=== PATIENT | female | born 1940 | race Caucasian/White ===

== ENCOUNTER 2018-04-01 05:58 | Day surgery (SDC) | payer MEDICARE, BC ==
[~2018-04-01] VITALS: Ht 165.1 cm; Wt 77.1 kg
[~2018-04-01 05:58] MED LIST: ASPIRIN81 MG; BL VIT B-12100 MCG PO; FISH OIL1 CAP PO; FLONASE NASAL50 MCG; MAXIDE1 COMBO PO; MUCINEX600 MG PO; MULTIVITAMI1 PO; OMEPRAZOLE20 M1 PO; PRILOSEC20 MG PO; TRAZODONE50 MG PO; VITAMIN D400 UNI1 PO
[2018-04-01 08:05] VITALS: BP 130/65
== END 2018-04-01 08:11 | disposition home or self-care (01) ==
LOC: ENDO 05:58 → ORM 07:00 → ENDO 08:11
PROVIDERS: ATTEND Surgery
PROC: 0DB78ZX Excision of Stomach, Pylorus, Via Natural or Artificial Opening Endoscopic, Diagnostic (ICD-10-PCS; principal; 2018-04-01)
PROC: 0DJD8ZZ Inspection of Lower Intestinal Tract, Via Natural or Artificial Opening Endoscopic (ICD-10-PCS; 2018-04-01)
DX: K29.50 Unspecified chronic gastritis without bleeding (principal); K44.9 Diaphragmatic hernia without obstruction or gangrene; K31.7 Polyp of stomach and duodenum; Q39.8 Other congenital malformations of esophagus; Z12.11 Encounter for screening for malignant neoplasm of colon; K57.30 Diverticulosis of large intestine without perforation or abscess without bleeding; K64.8 Other hemorrhoids; I10 Essential (primary) hypertension
CPT/HCPCS: 43239; G0121

== ENCOUNTER 2019-01-03 12:24 | Emergency (ER) | payer MEDICARE, BC ==
[~2019-01-03] VITALS: Ht 165.1 cm; Wt 85.5 kg
[2019-01-03 12:50] LABS: URINE BILIRUBIN - DIPSTICK NEGATIVE (NEGATIVE); URINE BLOOD DIPSTICK NEGATIVE (NEGATIVE); URINE COLOR YELLOW; URINE GLUCOSE - DIPSTICK NEGATIVE (NEGATIVE); URINE KETONE NEGATIVE (NEGATIVE); URINE NITRITE - DIPSTICK NEGATIVE (Negative); URINE PH 5.5 (4.5-8.0); URINE PROTEIN - DIPSTICK NEGATIVE (NEG-TRACE); URINE SPECIFIC GRAVITY 1.025; URINE UROBILINOGEN - DIPSTICK 0.2 E.U./dL (0.2)
[2019-01-03 12:53] LABS: URINE LEUK ESTERASE MODERATE (NEGATIVE)
[2019-01-03 13:07] LABS: URINE SQUAMOUS EPITHELIAL CELL FEW EPI/hpf (0-FEW)
[2019-01-03 13:07] LABS: HEMATOCRIT 37.7 % (37.0-47.0); HEMOGLOBIN 12.6 g/dl (12.0-16.0); IMMATURE GRANULOCYTES 0.5 % (0.0-5.0); MEAN CELL VOLUME 89.8 fL CALC (80.0-100.0); MEAN CORPUSCULAR HGB CONC 33.4 g/L CALC (32.0-36.0); NEUT# 4.92 thou/uL (2.00-7.15); RED BLOOD COUNT 4.2 mill/uL (4.20-5.60)
[2019-01-03 13:16] LABS: ALKALINE PHOSPHATASE 120 u/l (38-126); ANION GAP 12 (6-22 (CALC)); BILIRUBIN, TOTAL 0.6 mg/dL (0.0-1.4); BUN 18 mg/dL (8-23); BUN/CREATININE RATIO 21 (12-20 (CALC)); CARBON DIOXIDE 27 mmol/l (22-30); CHLORIDE 102 mmol/l (95-108); CREATININE 0.9 mg/dL (0.5-1.0); GFR > 60 ML/MIN (>=60 (CALC)); GFR FOR AFR.AMER. > 60 ML/MIN (>=60 (CALC)); LIPASE 134 u/l (23-300); POTASSIUM 3.7 mmol/l (3.5-5.1); SGOT/AST 51 u/l (9-36); SODIUM 137 mmol/l (137-146); TOTAL PROTEIN 7.2 g/dL (6.3-8.2)
[2019-01-03] MEDS ORDERED: KEFLEX500 MG PO (13:35)
[2019-01-03] MEDS ORDERED: TRAMADOL HYDROC50 MG PO (13:35)
[2019-01-03] MEDS ORDERED: SINGULAIR10 MG PO (13:43)
[2019-01-03] MEDS ORDERED: MAXZIDE PO (13:43)
[2019-01-03] MEDS ORDERED: VALTREX1 GM PO (13:44)
[2019-01-03] MEDS ORDERED: EFFEXOR25 M1 PO (13:44)
[2019-01-03 13:46] VITALS: BP 137/67
== END 2019-01-03 13:46 | disposition home or self-care (01) ==
LOC: ED 12:24
DX: N20.0 Calculus of kidney (principal); N39.0 Urinary tract infection, site not specified; Z87.442 Personal history of urinary calculi

== ENCOUNTER 2020-01-21 18:59 | Inpatient (IN) | payer MEDICARE, BC ==
[~2020-01-21] VITALS: Ht 165.1 cm; Wt 111.8 kg
[~2020-01-21 18:59] MED LIST changes: +EFFEXOR25 M1 PO; +KEFLEX500 MG PO; +MAXZIDE PO; +SINGULAIR10 MG PO; +TRAMADOL HYDROC50 MG PO; +VALTREX1 GM PO
--- NOTE | 2020-01-21 19:00 | NUR ---
BY EMS TO ROOM
--- NOTE | 2020-01-21 20:00 | NUR ---
RESTING QUIETLY AWAITING TEST RESULTS.
--- NOTE | 2020-01-21 21:00 | NUR ---
NO CHANGE IN EXAM. VSS. NAD
[2020-01-21 21:10] LABS: HEMATOCRIT 41.4 % (37.0-47.0); HEMOGLOBIN 13.1 g/dl (12.0-16.0); IMMATURE GRANULOCYTES 0.4 % (0.0-5.0); MEAN CELL VOLUME 96.5 fL CALC (80.0-100.0); MEAN CORPUSCULAR HGB 30.5 pG CALC (26.0-32.0); MEAN CORPUSCULAR HGB CONC 31.6 g/dL CAL (32.0-36.0); NEUT# 3.92 thou/uL (2.00-7.15); RED BLOOD COUNT 4.29 mill/uL (4.20-5.60); RED CELL DISTRI WIDTH 12.7 % (11.5-15.5)
[2020-01-21 21:18] LABS: ALBUMIN 4.1 g/dL (3.2-5.0); ALKALINE PHOSPHATASE 109 u/l (38-126); AMYLASE 77 u/l (30-110); ANION GAP 13 (6-22 (CALC)); BILIRUBIN, TOTAL 0.5 mg/dL (0.0-1.4); BUN 17 mg/dL (8-23); BUN/CREATININE RATIO 17 (12-20 (CALC)); CARBON DIOXIDE 25 mmol/l (22-30); CHLORIDE 100 mmol/l (95-108); GFR 54 ML/MIN (>=60 (CALC)); GFR FOR AFR.AMER. > 60 ML/MIN (>=60 (CALC)); LIPASE 86 u/l (23-300); POTASSIUM 3.7 mmol/l (3.5-5.1); SGOT/AST 39 u/l (9-36); SODIUM 135 mmol/l (137-146); TOTAL PROTEIN 7.2 g/dL (6.3-8.2)
[2020-01-21 21:29] LABS: MYOGLOBIN 60 ng/mL (0 - 62)
--- NOTE | 2020-01-21 22:00 | NUR ---
APPEARS COMFORTABLE. NO CHANGES NOTED.
--- NOTE | 2020-01-21 23:00 | NUR ---
RESTING QUIETLY NO CHANGE IN EXAM.
--- NOTE | 2020-01-22 | NUR ---
NO SIGNIFICANT CHANGE NOTED. AWAITING DISPO.
--- NOTE | 2020-01-22 01:00 | NUR ---
RESTING QUIETLY. VSS NAD
[2020-01-22 01:44] VITALS: BP 138/64
--- NOTE | 2020-01-22 01:44 | NUR ---
79 yr old white female admitted as medsurg tele overflow to icu5 per stretcher from er. air/contact precautions initiated. ambulated self to bedside commode then to bed. bed weight obtained. o2 cont per nc. denies resp diff. tracer powder blender shows sinus rhythm 1st degree avb hr 80. #22 rac. ns bolus cont. history obtained per pt & er record. oriented to room. fall precautions initiated.
--- NOTE | 2020-01-22 01:45 | NUR ---
Admission Note Report Given to: FINA LYNNE Transported by: Wheelchair X Stretcher Transported with: X Nurse Transporter X Patent IV X O2 X Epidemiology Internship Location: X ICU MS2
[2020-01-22] MEDS ORDERED: GABAPENTIN300 M2 PO (02:37)
[2020-01-22] MEDS ORDERED: ZETIA10 MG PO ×2 (02:37→02:41)
[2020-01-22] MEDS ORDERED: ACETAMINOPHEN500 M1 PO (02:39)
[2020-01-22] MEDS ORDERED: ELIQUIS5 MG PO (02:40)
[2020-01-22] MEDS ORDERED: ATORVASTATIN CA40 MG PO (02:40)
[2020-01-22] MEDS ORDERED: TOPROL XL25 MG PO (02:41)
[2020-01-22] MEDS ORDERED: K-TABS10 MEQ PO (02:42)
[2020-01-22 04:00] VITALS: BP 137/66
--- NOTE | 2020-01-22 04:00 | NUR ---
up to bsc. urine spec collected & sent to lab.
--- NOTE | 2020-01-22 05:45 | NUR ---
lab here. blood drawn.
[2020-01-22 06:31] LABS: URINE BILIRUBIN - DIPSTICK NEGATIVE (NEGATIVE); URINE BLOOD DIPSTICK NEGATIVE (NEGATIVE); URINE COLOR YELLOW; URINE GLUCOSE - DIPSTICK NEGATIVE (NEGATIVE); URINE KETONE NEGATIVE (NEGATIVE); URINE LEUK ESTERASE NEGATIVE (NEGATIVE); URINE NITRITE - DIPSTICK NEGATIVE (Negative); URINE PROTEIN - DIPSTICK NEGATIVE (NEG-TRACE); URINE SPECIFIC GRAVITY 1.015; URINE UROBILINOGEN - DIPSTICK 0.2 E.U./dL (0.2)
[2020-01-22 06:35] LABS: HEMATOCRIT 38.4 % (37.0-47.0); HEMOGLOBIN 12.2 g/dl (12.0-16.0); IMMATURE GRANULOCYTES 0.6 % (0.0-5.0); MEAN CORPUSCULAR HGB 30.5 pG CALC (26.0-32.0); MEAN CORPUSCULAR HGB CONC 31.8 g/dL CAL (32.0-36.0); NEUT# 3.04 thou/uL (2.00-7.15); RED CELL DISTRI WIDTH 12.8 % (11.5-15.5)
--- NOTE | 2020-01-22 07:00 | NUR ---
REPORT RECEIVED FROM NIGHT NURSE. PT RESTING IN BED, NO S/S OF DISTRESS AT THIS TIME. SAFETY PRECAUTIONS IN PLACE. WILL CONTINUE TO MONITOR.
[2020-01-22 07:09] LABS: ALBUMIN 3.4 g/dL (3.2-5.0); ALKALINE PHOSPHATASE 77 u/l (38-126); BILIRUBIN, TOTAL 0.7 mg/dL (0.0-1.4); BUN 15 mg/dL (8-23); BUN/CREATININE RATIO 19 (12-20 (CALC)); C-REACTIVE PROTEIN 7.8 mg/dL (0-0.9); CARBON DIOXIDE 21 mmol/l (22-30); CHLORIDE 106 mmol/l (95-108); CREATININE 0.8 mg/dL (0.5-1.0); GFR > 60 ML/MIN (>=60 (CALC)); GFR FOR AFR.AMER. > 60 ML/MIN (>=60 (CALC)); SGOT/AST 38 u/l (9-36); SODIUM 135 mmol/l (137-146); TOTAL PROTEIN 6.1 g/dL (6.3-8.2)
[2020-01-22 07:17] LABS: ANION GAP 13 (6-22 (CALC)); POTASSIUM 4.8 mmol/l (3.5-5.1)
--- NOTE | 2020-01-22 08:10 | NUR ---
PT RESTING IN BED, ALERT AND ORIENTED. RESPIRATIONS ARE EVEN AND UNLABORED ON O2 @ 2L VIA NC. LUNGS SOUND CLEAR/DIMINISHED. PEDAL PULSES ARE WEAK. PT REPORTS MILD GENERALIZED PAIN. MD TO BE NOTIFIED. PT PROVIDED WITH A TOWEL AND YANIQUE SHANTEL PER REQUEST. SAFETY PRECAUTIONS IN PLACE. WILL CONTINUE TO MONITOR.
[2020-01-22 10:00] VITALS: BP 136/60
[2020-01-22 12:00] VITALS: BP 121/80
--- NOTE | 2020-01-22 12:09 | NUR ---
PT RESTING IN BED, RESPIRATIONS ARE EVEN AND UNLABORED ON O2 @ 2L VIA NC. NO S/S OF DISTRESS AT THIS TIME. SAFETY PRECAUTIONS IN PLACE. WILL CONTINUE TO MONITOR.
[2020-01-22] MEDS ORDERED: CRESTOR5 M1 PO (12:21)
[2020-01-22 15:55] VITALS: BP 169/73
[2020-01-22 20:00] VITALS: BP 157/65
--- NOTE | 2020-01-22 20:00 | NUR ---
PT AWAKE AND ALERT, NO C/O RESP DIFF. DISCUSSED PLANE OF CARE. CALL VASQUEZ AT BEDSIDE.
--- NOTE | 2020-01-22 22:35 | NUR ---
PT C/O SHOULDER AND BACK PAIN, REQUESTED TYLENOL.
--- NOTE | 2020-01-22 22:42 | NUR ---
PT ON HOME C-PAP.
[2020-01-23] VITALS (7 sets, daily range): BP systolic 102–175; BP diastolic 52–63
--- NOTE | 2020-01-23 | NUR ---
PT SLEEPING WITH HOME CPAP ON. CALL VASQUEZ IN REACH.
--- NOTE | 2020-01-23 02:35 | NUR ---
PT C/O BEING COLD AND SHIVERING. T96.9 BLANKET PROVIDED.
--- NOTE | 2020-01-23 03:43 | NUR ---
PT C/O NAUSEA AND BEING COLD. MEDICATED PER MAR. ADDITIONAL BLANKET PROVIDED.
--- NOTE | 2020-01-23 06:28 | NUR ---
PT SLEEPING WITH HOME CPAP ON. NO EPISODES OF VOMITING. NO SHIVERING NOTED. CALL VASQUEZ IN REACH.
--- NOTE | 2020-01-23 07:00 | NUR ---
REPORT RECEIVED FROM FINA OLIVA. PT RESTING IN BED, NO S/S OF DISTRESS AT THIS TIME. SAFETY PRECAUTIONS IN PLACE. WILL CONTINUE TO MONITOR.
--- NOTE | 2020-01-23 08:03 | NUR ---
PT RESTING IN BED, ALERT AND ORIENTED. RESPIRATIONS ARE EVEN AND UNLABORED ON CPAP. PT REPORTS MILD PAIN IN UPPER BACK AND SHOULDERS, PT MEDICATED PER EMAR ORDERS. PEDAL PULSES ARE WEAK. PT PROVIDED WITH YANIQUE SHANTEL PER REQUEST. SAFETY PRECAUTIONS IN PLACE. WILL CONTINUE TO MONITOR.
--- NOTE | 2020-01-23 21:00 | NUR ---
PT RESTING WITH EYES CLOSED; AROUSED EASILY TO VERBAL STIMULI; O2 2L VIA NC, PT WITH EXERTIONAL SOB; NOP COUGH, LUNGS CLEAR/DIMINSHED; #[address], FLUSHED WITHOUT DIFFICULTY; PT C/O BILAT SHOULDER PAIN 5/10, MEDICATED ORDERED; CALL VASQUEZ WITHIN REACH; SIDERAILS UP X2 WILL CONTINUE TO MONITOR.
--- NOTE | 2020-01-24 01:07 | NUR ---
PT RESTING WITH EYES CLOSED; NO S/SX OF DISTRESS NOTED; CALL VASQUEZ WITHIN REACH; WILL CONTINUE TO MONITOR.
--- NOTE | 2020-01-24 03:42 | NUR ---
PT AROUSED EASILY, REQUEST BLANKET AT THIS TIME; NO COMPLAINTS OR CONCERNS VOICED; CALL VASQUEZ WITHIN REACH; WILL CONTINUE TO MONITOR.
[2020-01-24 04:00] VITALS: BP 127/61
--- NOTE | 2020-01-24 04:50 | NUR ---
TYLENOL GIVEN FOR BILATERAL SHOULDER PAIN. PT C/O BEING VERY COLD AND ITS EXACERBATING HER PAIN. RESTING IN BED ON RIGHT SIDE WITH CPAP ON. REMOVED TO AMBULATE TO BATHROOM AND PT NOW BACK IN BED IN SAME POSITION. WARM BLANKET PROVIDED AND PT STATES SHE FEELS BETTER. SPO2 90% ON 2L OXYGEN VIA NC; BREATHING TECHNIQUES ENCOURAGED. REPORTS PRODUCTIVE COUGH; DOES NOT KNOW QUALITIES OF SPUTUM. REMAINS ON AIRBORNE/CONTACT PRECAUTIONS PENDING COVID SWAB. CALL LIGHT WITHIN REACH.
[2020-01-24 07:40] VITALS: BP 112/53
--- NOTE | 2020-01-24 08:50 | NUR ---
DR. ROUSE AND FIDEL KOCH AT BEDSIDE.
--- NOTE | 2020-01-24 10:43 | NUR ---
TYLENOL GIVEN FOR 6/10 BILATERAL SHOULER PAIN. PT REQUESTING A WARMER ROOM; WILL ATTEMPT TO FIND MORE COMFORTABLE ROOM. PT RESTING IN BED ON RIGHT SIDE WITH OXYGEN IN PLACE. AMBULATES TO BATHROOM INDEPENDENTLY.
--- NOTE | 2020-01-24 13:45 | NUR ---
TYLENOL EFFECTIVE FOR SHOULDER PAIN; HEAT PACKS ALSO PROVIDED FOR COMFORT. PT REPORTS THAT SHE IS CURRENTLY NOT COLD. NO REQUESTS OR CONCERNS AT THIS TIME. CALL LIGHT WITHIN REACH.
[2020-01-24 15:00] VITALS: BP 117/53
--- NOTE | 2020-01-24 16:18 | NUR ---
WHILE RESTING ON RIGHT SIDE PT'S SPO2 ON 2L IS NOW 86-87%; ENCOURAGED TO DEEP BREATH AND POSITION PRONE; PT REFUSES TO REST PRONE STATING THAT SHE DOES NOT TOLERATE IT; EDUCATED ON BREATHING TECHNIUQES AND SYMPTOMS OF COVID. OVER THE LAST 20 MINUTES OXYGEN HAS BEEN TITRATED UP AND IS NOW UP TO 5L VIA NC; SPO2 CURRENTLY 92-94% ON 5L. WILL CONTINUE TO MONITOR.
--- NOTE | 2020-01-24 18:00 | NUR ---
INCENTIVE SPIROMETER PROVIDED; PT GIVEN VERBAL EDUCATION AND INSTRUCTION. SPO2 92% 5L NC WHILE PERFORMING RETURN DEMONSTRATION. INSPIRATORY VOLUME ALMOST TO 1000. PT UP TO CHAIR FOR DINNER AFTER MULITPLE REQUESTS AND A LOT OF ENCOURAGEMENT. VERY SOB WITH EXERTION.
--- NOTE | 2020-01-24 18:50 | NUR ---
WITH EXERTION UP TO CHAIR SPO2 DECREASED INTO LOW 80S; OXYGEN TITRATED UP TO 6L VIA NC. PT PERFORMING BREATHING TECHNIUQES. WILL CONTINUE TO MONITOR.
[2020-01-24 20:00] VITALS: BP 165/70
[2020-01-24 21:09] VITALS: BP 140/68
--- NOTE | 2020-01-24 21:09 | NUR ---
PT MEDICATED ORDERS PROVIDE AND ASSESSMENT COMPLETED AT THIS TIME. PT IS IN BED LAYING ON SIDE WITH HEAD SLIGHTLY ELEVATED. I ASKED PT TO DEMONSTRATE IS, SHE STATED "OH I ALREADY DID THAT." I ASKED IF SHE COULD PLEASE DEMONSTRATE FOR ME SO I CAN SEE WHERE SHE IS MEASURING ON IT, SHE DEMONSTRATED 1200 ON IS. PT OXYGEN SATS @87% ON 6L HIGH FLOW, 7L 90%. TEMP 100.3, TYLENOL WAS JUST GIVEN PREVIOUSLY BY DAY NURSE, WILL CONTINUE TO MONITOR. I DISCUSSED WITH PT POSITIONING FOR BREATHING TECHNIQUES AND OPENING LUNGS, PT REFUSED PRONE POSITION, I CONTINUE TO EDUCATE HER, SHE REPLIED, "I CAN'T LAY ON MY STOMACH." I THEN SUGGESTED THAT SHE BOOST IN THE BED AND RAISE THE HOB TO HIGH FOWLERS POSITION, PT CONTINUES TO LAY LOW ON HER SIDE WITH HOB SLIGHTLY RAISE AND CHEST BENT OVER. PT ASKING FOR SPOON TO EAT YOGURT WITH AND NEW IV SITE.
--- NOTE | 2020-01-24 21:20 | NUR ---
NEW IV SITE OBTAINED, OLD SITE REMOVED INTACT. PT TOLERATED IT WELL. PT ENCOURAGED TO CALL NEEDS ARISE, CALL LIGHT W/IN REACH.
[2020-01-25] VITALS (17 sets, daily range): BP systolic 111–163; BP diastolic 50–79
--- NOTE | 2020-01-25 04:40 | NUR ---
OXYGEN SAT LEVELS REPORTED BY ASSISTANT HALL DIRECTOR TO BE 83% ON CPAP. RESPIRATORY CALLED TO WORK WITH PT, PATIENT IS REFUSING TO LAY IN PRONE POSITION AND STATES SHE CANNOT SIT UPRIGHT IN BED ON HER BACK UNLESS SHE HAS ZOFRAN FOR NAUSEA, WILL MEDICATE TO ASSIST WITH THIS COMFORT MEASURE. PT PLACED ON 14LHIGH FLOW, SAT LEVELS 83% PHYSICIAN NOTIFIED AND NEW ORDERS RECEIVED AT THIS TIME.
--- NOTE | 2020-01-25 05:05 | NUR ---
PT TRANSFERRED TO ICU IN STABLE CONDITION, REPORT GIVEN TO ICU NURSE AT BEDSIDE. OXYGEN SAT LEVELS FLUCTUATING FROM 87-100% ON 15LHIGH FLOW. RESPIRATORY AT BEDSIDE. PT TOLERATED TRANSFER WELL.
--- NOTE | 2020-01-25 05:05 | NUR ---
rec'd to icu5 per bed from [facility]. o2 cont per nc @ 14 l/m. pt instructed strongly about need to lay in prone position. pt says "i can't." night monitor shows sinus rhythm hr 84. #22 rt hand saline lock. temp 101.3 ax. tylenol 650mg po given. fall & air/contact precautions cont.
--- NOTE | 2020-01-25 05:50 | NUR ---
lab here. blood drawn. xray here pcxr obtained.
[2020-01-25 06:10] LABS: HEMATOCRIT 38.7 % (37.0-47.0); HEMOGLOBIN 12.4 g/dl (12.0-16.0); IMMATURE GRANULOCYTES 0.4 % (0.0-5.0); MEAN CELL VOLUME 95.3 fL CALC (80.0-100.0); MEAN CORPUSCULAR HGB 30.5 pG CALC (26.0-32.0); NEUT# 8.51 thou/uL (2.00-7.15); RED BLOOD COUNT 4.06 mill/uL (4.20-5.60); RED CELL DISTRI WIDTH 12.8 % (11.5-15.5)
--- NOTE | 2020-01-25 06:30 | NUR ---
up to bsc. had small amt dk brown diarrhea. stool spec sent to lab.
[2020-01-25 06:37] LABS: ALBUMIN 3.2 g/dL (3.2-5.0); ALKALINE PHOSPHATASE 80 u/l (38-126); BILIRUBIN, TOTAL 0.6 mg/dL (0.0-1.4); BUN 22 mg/dL (8-23); BUN/CREATININE RATIO 27 (12-20 (CALC)); CARBON DIOXIDE 24 mmol/l (22-30); CHLORIDE 105 mmol/l (95-108); CREATININE 0.8 mg/dL (0.5-1.0); GFR > 60 ML/MIN (>=60 (CALC)); GFR FOR AFR.AMER. > 60 ML/MIN (>=60 (CALC)); SGOT/AST 48 u/l (9-36); SODIUM 137 mmol/l (137-146)
[2020-01-25 06:41] LABS: ANION GAP 12 (6-22 (CALC)); POTASSIUM 3.6 mmol/l (3.5-5.1)
--- NOTE | 2020-01-25 06:45 | NUR ---
REPORT RECIEVED FROM MAGED RICHTER. CARE ASSUMED.
--- NOTE | 2020-01-25 07:30 | NUR ---
PT RESTING IN BED ON RIGHT SIDE. ENCOURAGED PT TO PRONE. PT REMAINS ON RIGHT SIDE. PT IS ALERT AND ORIENTED X3. SHIFT ASSESSMENT COMPLETED AT THIS TIME. IV PATENT X1. CALL LIGHT IN REACH. WILL CONTINUE TO MONITOR.
[2020-01-25 07:34] LABS: C-REACTIVE PROTEIN 33.6 mg/dL (0-0.9)
--- NOTE | 2020-01-25 08:00 | NUR ---
RT AT BEDSIDE FOR ABG
--- NOTE | 2020-01-25 08:20 | NUR ---
DR MONSON AT BEDSIDE AT THIS TIME.
--- NOTE | 2020-01-25 08:35 | NUR ---
RT PLACED PT ON CPAP MODE OF 10 WITH 70% FIO2.
--- NOTE | 2020-01-25 08:56 | NUR ---
RECEIVED PT ON 15L HFNC SO2 88%. PT UNABLE TO MAINTAIN SATURATION. PT PLACED ON V60 IN CPAP MODE. CPAP OF 10 FIO2 70%. SO2 94% AT THIS TIME. FINA GARIBAY AWARE AND AT BEDSIDE. WILL CONTINUE TO MONITOR.
--- NOTE | 2020-01-25 09:59 | NUR ---
PT RESTING IN BED ON CPAP. RESP ARE EVEN AND UNLABORED. NO DISTRESS NOTED. VSS ON MONITOR. CALL LIGHT IN REACH. WILL CONTINUE TO MONITOR.
--- NOTE | 2020-01-25 11:30 | NUR ---
PT OFF OF BIPAP FOR NOON MEAL AND PLACED ON 15L HF NASAL CANNULA.
--- NOTE | 2020-01-25 12:15 | NUR ---
PT PLACED BACK ON CPAP/BIPAP FOR O2 83%. PT TOLERATED WELL.
--- NOTE | 2020-01-25 14:00 | NUR ---
PT TAKEN OFF OF BIPAP AT THIS TIME. TO BE ABLE TO EAT AND DRINK A BIT. PT PLACED ON 15L HF NC.
--- NOTE | 2020-01-25 14:45 | NUR ---
PT PLACED BACK ON BIPAP AT THIS TIME FOR O2 SAT OF 82%. PT NEEDED TO VOID. DUE TO DYSPNEA PLACED A PUREWICK PT TOLERATED PLACEMENT WELL. CALL LIGHT IN REACH. WILL CONTINUE TO MONITOR.
--- NOTE | 2020-01-25 16:30 | NUR ---
PT RESTING IN BED WITH CPAP/BIPAP ON AT THIS TIME. PT IS TOLERATING WELL. RESP ARE EVEN AND UNLABORED. NO DISTRESS NOTED CALL LIGHT IN REAVCH. WILL CONTINUE TO MONITOR.
--- NOTE | 2020-01-25 17:30 | NUR ---
TEMP 100.3 TOOK PATIENT OFF OF BIPAP/CPAP TO GIVE TYLENOL WITH SMALL SIPS OF DRINK. PT BECAME NAUSEATED PLACED PT ON HI HOA NC AT 15L. PT GIVEN ZOFRAN PER MAY. PT DESAT TO 59% AND WAS TACHYPNEIC. PT GIVEN COACHING ON BREATHING. PT STATED NAUSEA HAD SUBSIDED. RT PLACED PT ON BIPAP NOT CPAP AT THIS TIME SEE RT CHARTING FOR SETTINGS. PT TOLERATING WELL. CALL LIGHT IN REACH. WILL CONTINUE TO MONITOR.
--- NOTE | 2020-01-25 18:30 | NUR ---
REPEAT TEMP 100.5.
--- NOTE | 2020-01-25 20:00 | NUR ---
RESTING IN BED WITH EYES CLOSED. AWAKENS TO NAME. ALERT AND ORIENTED. ON BIPAP WITH SETTINGS O2 100%, EPAP 10, IPAP 10, RATE 16. DIMINISHED BREATH SOUNDS THROUGHOUT LUNG BARBA. SALINE LOCK IN RIGHT HAND FLUSHED AND PATENT, SITE BENIGN HIM SPECIALIST SHOW SR WITH [address] DE[address] AVB. DISCUSSED PLAN OF CARE. EXPLAINED PRONING TO PATIENT. REMOVED BIPAP MASK BRIEFLY FOR PATIENT TO TAKE PO FLUIDS, O2 SAT IMMEDIATELY DROPPED TO LOW 80'S. WHILE ON BIPAP O2 SAT 94-95% DENIES NEEDS AT THIS TIME. CALL VASQUEZ IN REACH.
--- NOTE | 2020-01-25 21:00 | NUR ---
PATIENT DAUGHTER REDD PHONED IN FOR CONDITION UPDATE.
--- NOTE | 2020-01-25 22:00 | NUR ---
RESTING QUIETLY IN BED. VSS.
[2020-01-26] VITALS (21 sets, daily range): BP systolic 65–185; BP diastolic 44–79
--- NOTE | 2020-01-26 | NUR ---
ASLEEP. VSS. O2 SAT 93% BIPAP REMAINS IN PLACE WITH SETTING UNCHANGED. SR WITH 1 [address] DEGREE AVB ON MONITOR.
--- NOTE | 2020-01-26 02:00 | NUR ---
PATIENT SLEEPING. NO SIGNS OF DISTRESS. VSS.
--- NOTE | 2020-01-26 03:30 | NUR ---
PUREWICK MALPOSITIONED, PATIENT INCONTINENT OF URINE AND SMALL LIQUID STOOL. ZEYAD-CARE PROVIDED AND NEW PUREWICK PLACED.
--- NOTE | 2020-01-26 04:00 | NUR ---
ASLEEP. RESP NON-LABORED.
--- NOTE | 2020-01-26 06:00 | NUR ---
NO CHANGES TO REPORT. SLEPT WELL. VSS.
--- NOTE | 2020-01-26 07:35 | NUR ---
ASSESSMENT IS COMPLETED:IV SITE IS FREE FROM REDNESS OR EDEMA. HR IS REG,PULSES ARE STRONG X4, ABD IS SOFT WITH ACTIVE BS. BREATH SOUNDS ARE DIMINISHED. BIPAP. HRT MONITOR IN PLACE, CONTINUE TO OSBERVE AND MONITOR.
--- NOTE | 2020-01-26 07:53 | NUR ---
SPOKE WITH PT'S DAUGHTER FOR AN UPDATE. CONCERNED DUE TO PT HAVING PE IN THE PAST.
[2020-01-26 08:53] LABS: HEMATOCRIT 41.6 % (37.0-47.0); HEMOGLOBIN 13.3 g/dl (12.0-16.0); IMMATURE GRANULOCYTES 0.4 % (0.0-5.0); MEAN CELL VOLUME 95.2 fL CALC (80.0-100.0); MEAN CORPUSCULAR HGB 30.4 pG CALC (26.0-32.0); NEUT# 8.77 thou/uL (2.00-7.15); RED BLOOD COUNT 4.37 mill/uL (4.20-5.60)
[2020-01-26 09:14] LABS: ALBUMIN 3.4 g/dL (3.2-5.0); ALKALINE PHOSPHATASE 94 u/l (38-126); ANION GAP 14 (6-22 (CALC)); BILIRUBIN, TOTAL 0.8 mg/dL (0.0-1.4); BUN 29 mg/dL (8-23); BUN/CREATININE RATIO 38 (12-20 (CALC)); CARBON DIOXIDE 28 mmol/l (22-30); CHLORIDE 103 mmol/l (95-108); CREATININE 0.8 mg/dL (0.5-1.0); GFR > 60 ML/MIN (>=60 (CALC)); GFR FOR AFR.AMER. > 60 ML/MIN (>=60 (CALC)); POTASSIUM 4.2 mmol/l (3.5-5.1); SGOT/AST 70 u/l (9-36); SODIUM 141 mmol/l (137-146); TOTAL PROTEIN 6.6 g/dL (6.3-8.2)
--- NOTE | 2020-01-26 09:15 | NUR ---
PT WANTED TO HAVE THE CPAP OFF. EXPLAINED THAT SHE DESATS TO 70%. REPLACED BACK ON THEN IN 15 MINUTES REFUSED TO KEEP ON. SATS DROPPED TO 28-32%. HAVE A NASAL CANNULA ON WITH HIGH FLOW UP TO 64%
[2020-01-26 09:27] LABS: C-REACTIVE PROTEIN > 27.0 mg/dL (0-0.9)
--- NOTE | 2020-01-26 09:54 | NUR ---
PT IS REQUESTING A VENT. STATING " I CAN'T TAKE THIS ANYMORE" RESPIRATORY HAS HER ON HIGH FLOW AND NON REBREATHER CURRENTLY 82% AT THIS TIME.
--- NOTE | 2020-01-26 10:43 | NUR ---
SPOKE WITH DR MONSON RE: PT AND THE VENTILATOR SATS ARE 85% WITH NON REBREATHER AND HIGH FLOW. WANTING TO GO AHEAD AND VERNT PT.
--- NOTE | 2020-01-26 11:34 | NUR ---
DR CARLIN ON THE UNIT TO INTUBATE THE PT
--- NOTE | 2020-01-26 12:00 | NUR ---
DR CARLIN PLACED INTUBATION AND CENTRAL LINE AND OG
--- NOTE | 2020-01-26 12:00 | NUR ---
PT IS RESTING UNDER SEDATION
--- NOTE | 2020-01-26 12:05 | NUR ---
PT.INTUBATED BY AT 1140 WITH 7.5 ETT 23@ LIP. PLACEMENT VERIFIED BY XRAY/BILATERAL BREATH SOUNDS.
--- NOTE | 2020-01-26 12:31 | NUR ---
# 16 EGYPTIAN DA SILVA PLACED IN PT. LARGE AMOUNT OF DARK YELLOW URINE CAME OUT SMALL AMOUNT OF STOOL ALSO
--- NOTE | 2020-01-26 13:15 | NUR ---
INFORMED FAMILY IN [place] RE: PT BEING PLACED ON THE VENT PER PT REQUEST DUE TO O2 SATURATION DROPPING AND REFUSING TO KEEP HER CPAP IN PLACE. FAMILY VERBALIZED UNDERSTANDING AND WOULD LIKE TO KEPP UPDATED IF ANYTHING HAPPENS.
--- NOTE | 2020-01-26 16:54 | NUR ---
PT HAS BEEN INTUBATED AND PLACED ON PROPOFOL ACCORDINGLY. SHE REQUIRED BOLUS PER DECLINING BLOOD PRESSURE FROM PROPOFOL. SYSTOLIC WAS IN THE MID 80s PRIOR TO CONTACTING PHYSICIAN. PT IS 89/55 AT THIS TIME AND IS STILL RECEIVING BOLUS. PROPOFOL IS AT 60 MCG.
--- NOTE | 2020-01-26 21:10 | NUR ---
PATIENT LAYS WITH HOB 30 DEGREES. NURSE ASSESSMENT PERFORMED. VENT SETTINGS: PEEP 10, RATE 22, TV 400, FIO2 100%. ET SIZE 7.5, 23 AT THE LIP. O2 SAT 93%. MOUTH CARE, [place] ET SUCTIONING PERFORMED, MODERATE AMOUNTS SUCTIONED, WHITE/THICK PHLEGM NOTED. OG TUBE INTACT, DRAINAGE IS DARK, BLACK, SET AT LIS. R-FEMORAL TRIPLE LUMEN CENTRAL LINE INTACT, FLUSHES AND RETURNS BLOOD PROPERLY, NS INFUSING AT 125 ML/HR, PROPOFOL AT 60 MCG/KG/MIN. LAC 22 G IV INTACT, FLUSHES PROPERLY, SALINE LOCKED.SB/SR ON TELEMETRY. DA SILVA INTACT, URINE IS SKY, CLOUDY WITH SEDIMENT.
--- NOTE | 2020-01-26 21:42 | NUR ---
RETYURNED THE CALL TO THE DAUGHTER REDD, SHE WANTED UPDATES ON HER MOTHER, UPDATES PROVIDED. VERIFIED HOME AND CELLPHONE NUMBER OF DAUGHTER. NOTIFIED HER WE WILL CALL HER IF ANY CHANGES. DAUGHTER LIVES IN [place].
[2020-01-27] VITALS (21 sets, daily range): BP systolic 102–156; BP diastolic 51–73
--- NOTE | 2020-01-27 04:58 | NUR ---
BLOOD DRAWN FOR AM LABS FROM R-FEMORAL TRIPLE LUMEN.
--- NOTE | 2020-01-27 05:47 | NUR ---
RT IN ROOM FOR ABG.
[2020-01-27 05:49] LABS: BASO% 0 % (0-3); EOS% 0 % (0-8); IMMATURE GRANULOCYTES 0.6 % (0.0-5.0); LYMPH% 7 % (15-41); MEAN CELL VOLUME 97.2 fL CALC (80.0-100.0); MEAN CORPUSCULAR HGB 30.1 pG CALC (26.0-32.0); MONO% 6 % (2-13); NEUT# 5.65 thou/uL (2.00-7.15); NEUT% 87 % (42-76); PLATELET COUNT 226 thou/uL (130-400); RED BLOOD COUNT 3.52 mill/uL (4.20-5.60); RED CELL DISTRI WIDTH 13.2 % (11.5-15.5)
[2020-01-27 05:51] LABS: HEMATOCRIT 34.2 % (37.0-47.0); HEMOGLOBIN 10.6 g/dl (12.0-16.0)
[2020-01-27 06:33] LABS: ALKALINE PHOSPHATASE 87 u/l (38-126); ANION GAP 11 (6-22 (CALC)); BILIRUBIN, TOTAL 0.5 mg/dL (0.0-1.4); BUN 36 mg/dL (8-23); BUN/CREATININE RATIO 42 (12-20 (CALC)); CARBON DIOXIDE 25 mmol/l (22-30); CHLORIDE 106 mmol/l (95-108); CREATININE 0.9 mg/dL (0.5-1.0); GFR > 60 ML/MIN (>=60 (CALC)); GFR FOR AFR.AMER. > 60 ML/MIN (>=60 (CALC)); POTASSIUM 3.4 mmol/l (3.5-5.1); SGOT/AST 51 u/l (9-36); SODIUM 139 mmol/l (137-146)
[2020-01-27 06:36] LABS: ALBUMIN 2.5 g/dL (3.2-5.0); TOTAL PROTEIN 5.1 g/dL (6.3-8.2)
--- NOTE | 2020-01-27 06:37 | NUR ---
RECEIVED CALL FROM RADIOLOGIST TO ADVANCE OG TUBE 8 CM. 8 CM MEASURED AND ADVANCED.
[2020-01-27 07:12] LABS: C-REACTIVE PROTEIN 26.6 mg/dL (0-0.9)
--- NOTE | 2020-01-27 07:20 | NUR ---
REPORT RECEIVED FROM FINA XAVIER. PT RESTING IN BED SEMI FOWLERS POSITIONED WITH PILLOWS; INTUBATED ON VENTILATOR ON ASSIST CONTROL SETTINGS; ET TUBE 7.5 23 AT THE LIP, RATE OF 22, TV 400, FIO2 100%, PEEP 10. OG TUBE TO LIS; 400 ML OF COFFEE GROUND GASTRIC CONTENT EMPTIED. TL R FEM CENTRAL CATHETER IN PLACE; DRESSING CDI; DIPRIVAN INFUSING AT 50 MCG/KG/MIN; NORMAL SALINE AT 125 ML/HR; ALSO HAS A PERIPHERAL LINE TO LAC THAT IS SALINE LOCKED. 16F DA SILVA CATHETER DRAINING GREEN COLORED URINE IN ADEQUATE AMOUNTS. SCD INTACT TO BLE. PT LIGHTLY SEDATED; ABLE TO FOLLOW COMMANDS AND SHAKE HER HEAD TO YES AND NO QUESTIONS. REPOSITIONED AT THIS TIME. VSS. SAFETY MEASURES IN PLACE. NEEDS ARE ANTICIPATED BY STAFF.
--- NOTE | 2020-01-27 07:40 | NUR ---
PROPOFOL TITRATED DOWN TO 40 MCG/KG/MIN DUE TO BRADYCARDIA; HR CURRENTLY 44.
--- NOTE | 2020-01-27 08:13 | NUR ---
DR. MONSON AT BEDSIDE FOR EVAL. HR IMPROVED, NOW IN THE HIGH 50'S.
--- NOTE | 2020-01-27 10:00 | NUR ---
OG TUBE CLAMPED FROM SUCTION AND PLACEMENT VERIFIED WITH AIR ADMINISTRATION. PT REPOSITIONED INTO HIGH FOWLERS AND AM MEDS CRUSHED AND GIVEN VIA OG TUBE. IV POTASSIUM INFUSING AT THIS TIME.
--- NOTE | 2020-01-27 11:37 | NUR ---
RT AT BEDSIDE; FOI2 DECREASED TO 90%.
--- NOTE | 2020-01-27 12:00 | NUR ---
RECONNECTED TO SUCTION. HEAD LOWERED TO 45 DEGREES AND POSITIONED ONTO RIGHT SIDE WITH PILLOWS; HEELS OFFLOADED WELL. 4 RINGS REMOVED AND PLACED IN PT BELONGINGS BAG DUE TO SWELLING IN HANDS; ONE RING REMAINS IN PLACE, UNABLE TO REMOVE.
--- NOTE | 2020-01-27 13:23 | NUR ---
CURRENT SPO2 85%; RT AT BEDSIDE FOR ABG.
--- NOTE | 2020-01-27 13:35 | NUR ---
FIO2 INCREASED BACK TO 100% AND SPO2 INCREASED. DAUGHTER UPDATED OVER THE PHONE AND QUESTIONS ANSWERED TO SATISFACTION.
--- NOTE | 2020-01-27 14:40 | NUR ---
FIRST DOSE OF REMDESIVIR COMPLETED WITH NO SIGNS OF REACTION. SINUS SHAHNAZ ON FIRE BOAT ENGINEER HR 57. VSS.
--- NOTE | 2020-01-27 14:42 | NUR ---
01/26/20 Patient is seen for therex including ROM of the extremities PNF D1 flexion and extension of the bilateral extremities. She is able to follow some instructions including DF/PF of the feet and assisting with UE elevation She is ventilated at this time
--- NOTE | 2020-01-27 16:00 | NUR ---
PT CONTINUES TO BE REPOSITIONED WITH PILLOWS AND TURNED EVERY 2 HOURS. TYLENOL GIVEN TWICE THIS SHIFT FOR CHRONIC BILATERAL SHOULDER PAIN. GIVEN WITH GABAPENTIN; OG CURRENTLY CLAMPED FOR DIGESTION AND PT RESTING IN HIGH FOWLERS. PROPOFOL CONTINUES TO INFUSE AT 40 MCG/KG/MIN. WILL CONTINUE TO MONITOR.
--- NOTE | 2020-01-27 19:00 | NUR ---
PATIENT LAYS WITH HOB 30 DEGREES. PATIENT IS ABLE TO NOD HER HEAD YES OR NO WITH SIMPLE QUESTIONS. NURSE ASSESSMENT PERFORMED. VENT SETTINGS FOLLOWS: PEEP 10, RATE 22, TIDAL VOLUME 400, FIO2 100%. O2 SAT 93%. OG TUBE INTACT, SET AT LIS, DRAINAGE COFFEE GROUND EMESIS. MOUTH CARE PROVIDED, ET AND MOUTH SUCTIONED. ET 23 AT THE LIP. R-FEMORAL TRIPLE LUMEN INTACT, FLUSHES AND RETURNS BLOOD PROPERLY. NS AT 125 ML/HR. PROPOFOL AT 40 MCG/KG/MIN. DA SILVA CATHETER INTACT, DRAINS GREEN/YELLOW/CLOUDY.SB/SR ON TELEMETRY, HR RANGES 50'S-60'S. SCD'S INTACT.
--- NOTE | 2020-01-27 20:02 | NUR ---
SPOKE TO AUGUST VELA APRN REGARDING ORDERS FOR DAILY PROTON PUMP INHIBITOR IV, NEW ORDERS WILL BE PLACED.
--- NOTE | 2020-01-27 20:20 | NUR ---
PATIENT'S DAUGHTER REDD CALLED HERE FOR UPDATES. UPDATES GIVEN. LET HER KNOW WE WILL CALL HER IF ANY CHANGES.
--- NOTE | 2020-01-27 22:15 | NUR ---
PATIENT WAS REPOSITONED TO RIGHT SIDE. PATENT WAS MDDICATED WITH BEDTIME MEDS AND TYLENOL, SHE NODDED HE HEAD ES WHEN I ASKED IF SHE WANTED TYLENOL. OG TUBE PLACEMENT WAS VERIFIED VIA AUSCULTATION. OG SUCTION ON HOLD NOW POST MEDICATIONS. I ASKED IF SH EWANTED SOCKS ON, SHE NODDED HER HEAD YES, SOCKS PLACED ON. ALSO, HER SKIN FELT COLD I ASKED IF SHE WAS COLD SHE NODDED YES, WARM BLANKET PROVIDED. HOB ELEVATED FOR NOW POST MEDICATIONS.
--- NOTE | 2020-01-27 23:05 | NUR ---
CALLED RT TERENCEER TO NOTIFU PATIENT'S O2 SAT 86%-87%. PULSE OX HAS BEEN CHANGED FINGERS AND HAND. WILL CONTINUE TO MONITOR.
--- NOTE | 2020-01-27 23:26 | NUR ---
NOTIFIED AUGUST VELA APRN OF RT TERENCEER HAD TO INCREASE PEEP FROM 10 TO 12 DUE TO PATIENT O2 SAT WAS 86%, NOW HER O2 SAT IS 92%. WILL CONTINUE TO MONITOR.
[2020-01-28] VITALS (35 sets, daily range): BP systolic 75–187; BP diastolic 34–87
--- NOTE | 2020-01-28 00:51 | NUR ---
NOTIFIED AUGUST VELA APRN ABOUT CRACKLES IN PATIENT RIGHT POSTERIOR MIDDLE AND LOWER LOBE AND LEFT POSTERIOR LOBE, BP 130'S SYSTOLIC, BUN 36/CREATININE 0.9. AND YESTERDAYS'S CHEST XRAY SHOWED TRACE BILATERAL PLEURAL EFFUSIONS. NEW ORDERES RECEIVED AND SENT TO [facility].
--- NOTE | 2020-01-28 01:09 | NUR ---
I SPOKE TO PAOLO FROM [facility] RGARDING THE LASIX IV 40 MG X1 NOW ORDER, SHE REPORTS SHE WILL NOTIFY PHARMACIST.
--- NOTE | 2020-01-28 01:18 | NUR ---
LASIX 40 MG IV GIVEN. WILL CONTINUE TO MONITOR.
--- NOTE | 2020-01-28 01:48 | NUR ---
RT IN ROOM. PEEP TITRATED TO 15. O2 NOW 94%.
--- NOTE | 2020-01-28 03:55 | NUR ---
PROVIDED BED BATHE. MOUTH CARE PROVIDED. LINENS CHANGED. REPSOTIONED, HOB AT 30 DEGREES.
[2020-01-28 06:27] LABS: HEMATOCRIT 35.9 % (37.0-47.0); HEMOGLOBIN 11.5 g/dl (12.0-16.0); IMMATURE GRANULOCYTES 1.4 % (0.0-5.0); MEAN CORPUSCULAR HGB 30.7 pG CALC (26.0-32.0); NEUT# 8.89 thou/uL (2.00-7.15); RED BLOOD COUNT 3.74 mill/uL (4.20-5.60); RED CELL DISTRI WIDTH 13.1 % (11.5-15.5)
--- NOTE | 2020-01-28 06:45 | NUR ---
REPORT RECEIVED FROM MORENITA HARDEN. CARE ASSUMED.
[2020-01-28 06:53] LABS: ALBUMIN 2.7 g/dL (3.2-5.0); ALKALINE PHOSPHATASE 101 u/l (38-126); ANION GAP 9 (6-22 (CALC)); BILIRUBIN, TOTAL 0.7 mg/dL (0.0-1.4); BUN 27 mg/dL (8-23); BUN/CREATININE RATIO 37 (12-20 (CALC)); CARBON DIOXIDE 28 mmol/l (22-30); CHLORIDE 107 mmol/l (95-108); CREATININE 0.7 mg/dL (0.5-1.0); GFR > 60 ML/MIN (>=60 (CALC)); GFR FOR AFR.AMER. > 60 ML/MIN (>=60 (CALC)); POTASSIUM 3.3 mmol/l (3.5-5.1); SGOT/AST 49 u/l (9-36); SODIUM 141 mmol/l (137-146); TOTAL PROTEIN 5.4 g/dL (6.3-8.2)
--- NOTE | 2020-01-28 07:00 | NUR ---
PT RESTING IN BED INTUBATED AND SEDATED AT THIS TIME. SHIFT ASSESSMENT COMPLETED AT THIS TIME. IV PATENT X2. DR MONSON AT BEDSIDE AT THIS TIME WELL. VERBAL ORDERS RECEIVED TO TRANSFER PATIENT. VSS ON MONITOR. WILL CONTINUE TO MONITOR.
[2020-01-28 07:10] LABS: C-REACTIVE PROTEIN 22.8 mg/dL (0-0.9)
--- NOTE | 2020-01-28 08:00 | NUR ---
PHONED [facility] SPOKE WITH JALEN. PT DENIED FOR TRANSFER DUE TO CAPACITY PHONED [facility] SPOKE WITH MARCELINO AWAITING CALL BACK OF ACCEPTANCE OR DENIAL.
--- NOTE | 2020-01-28 09:20 | NUR ---
PT note Patient is seen for ROM all extremities. I positioned her as far to the side as possible without dirupting tubing etc. She does follow some instructions for squeezing my hand but her ROM was basically passive. No real change with an Am Pac of 6
--- NOTE | 2020-01-28 10:00 | NUR ---
PT RESTING IN BED INTUBATED AND SEDATED. VSS AT THIS TIME. WILL CONTINUE TO MONITOR.
--- NOTE | 2020-01-28 10:30 | NUR ---
PHONED [facility] TRANSF[facility] [place] AND FAXED REQUESTED ITEMS. AWAITING DECISION.
--- NOTE | 2020-01-28 11:06 | NUR ---
PHONED [facility] FOR TRANSFER PAPERWORK FAXED AWAITING CALL BACK.
--- NOTE | 2020-01-28 12:00 | NUR ---
PT RESTING IN BED INTUBATED AND SEDATED. VSS ON MONITOR. CALL LIGHT IN REACH. WILL CONTINUE TO MONITOR.
--- NOTE | 2020-01-28 13:00 | NUR ---
RT AT BEDSIDE TO DRAW ABG. DR MONSON NOTIFIED OF ABG RESULTS AND VENT ADJUSTMENTS.
--- NOTE | 2020-01-28 14:17 | NUR ---
PT RESTING IN BED INTUBATED AND SEDATED. VSS ON MONITOR. WILL CONTINUE TO MONITOR CLOSELU.
--- NOTE | 2020-01-28 15:08 | NUR ---
Patient is seen for re- positioining on the left.. She demosntrated korey cardia with repositioning. She respnds faintly when asked to nod her head or squeeze my hand. No cahnge in vitals with repositioning
--- NOTE | 2020-01-28 15:30 | NUR ---
PT NOTED TO BE HYPOTENSIVE AT THIS TIME. DR MONSON NOTIFIED. NEW ORDERS RECEIVED.
--- NOTE | 2020-01-28 16:00 | NUR ---
LEVOPHED STARTED PER TITRATION CHARTING
--- NOTE | 2020-01-28 16:20 | NUR ---
PT NOTED TO BE TACHYCARDIC ON MODEL MAKER FIREARMS. DR MONSON NOTIFIED. EKG ORDERED. WILL WEAN LEVOPHED
--- NOTE | 2020-01-28 16:39 | NUR ---
RT AT BEDSIDE FOR STAT EKG.
--- NOTE | 2020-01-28 17:15 | NUR ---
CALLED [facility] IN FOR THIS PT. SPOKE TO FELICIA WAS GIVEN CONFIRMATION NUMBER [phone].
--- NOTE | 2020-01-28 17:35 | NUR ---
DAUGHTER PHONED FOR UPDATE. UPDATE PROVIDED.
--- NOTE | 2020-01-28 17:51 | NUR ---
pt resting in bed intubated and sedated at this time. vss on monitor. call light in reach. will continue to monitor.
--- NOTE | 2020-01-28 19:45 | NUR ---
PATIENT REMAINS SEDATED-RASS -3. ORALLY INTUBATED ON VENT-TV 450-FIO2 90%, A/C RATE 18, PEEP 15. O2 SAT 97% BREATH SOUNDS CLEAR. SUX ETT FOR SCANT CLEAR SECRTIONS AND ORALLY FOR SAME. MOUTH CARE PROVIDED. OG TUBE TO LIS DRAINS DARK BROWN. RT FEMORAL TLC IN PLACE, NS AT KVO, LEVOPHED GTT DECREASED TO 3 MCG/KG/MIN, DIPRIVAN AT 40 MCG. LAC SALINE LOCK IN PLACE. GENERALIZED EDEMA PRESENT. DA SILVA DRAINS GREN TINGED URINE. MUSIC COORDINATOR SHOWS SR. EXPLAINED PLAN OF CARE.
--- NOTE | 2020-01-28 22:00 | NUR ---
TURNED AND REPOSITIONED. ORAL CARE PROVIDED. VSS. MAINTAINS O2 SAT 97-98%
[2020-01-29] VITALS (25 sets, daily range): BP systolic 97–170; BP diastolic 40–66
--- NOTE | 2020-01-29 | NUR ---
VS REMAINS STABLE. VENT SETTINGS UNCHANGED FROM EARLIER. LEVOPHED GTT CONTINUES AT 3 MCG/KG/MIN AND DIPRIVAN AT 40 MCG. SR ON MONITOR.
--- NOTE | 2020-01-29 01:57 | NUR ---
REMAINS INTUBATED AND SEDATED. STABLE VS. SR ON MONITOR.
--- NOTE | 2020-01-29 03:30 | NUR ---
COMPLETE BED BATH AND LINENS CHANGED. PATIENT TRANSFERRED TO AIR MATTRESS WITH 4 PERSON ASSIST.
--- NOTE | 2020-01-29 04:00 | NUR ---
NO CHANGES TO REPORT. VSS. REMAINS SEDATED ON 40 MCG OF DIPRIVAN WITH RASS -3. BP STABLE LEVOPHED AT 3 MCG/MIN. SR ON MONITOR. TURNED AND REPOSITIONED.
[2020-01-29 05:41] LABS: BASO% 0 % (0-3); EOS% 0 % (0-8); HEMATOCRIT 35.3 % (37.0-47.0); HEMOGLOBIN 10.9 g/dl (12.0-16.0); IMMATURE GRANULOCYTES 2.3 % (0.0-5.0); LYMPH% 6 % (15-41); MEAN CELL VOLUME 96.2 fL CALC (80.0-100.0); MEAN CORPUSCULAR HGB 29.7 pG CALC (26.0-32.0); MEAN CORPUSCULAR HGB CONC 30.9 g/dL CAL (32.0-36.0); MONO% 3 % (2-13); NEUT# 12.06 thou/uL (2.00-7.15); NEUT% 88 % (42-76); PLATELET COUNT 345 thou/uL (130-400); RED BLOOD COUNT 3.67 mill/uL (4.20-5.60); RED CELL DISTRI WIDTH 13.4 % (11.5-15.5)
--- NOTE | 2020-01-29 06:00 | NUR ---
VSS. HAS MAINTAINED O2 SATS 98-100% SAME VENT SETTINGS THROUGHOUT THE NIGHT. TURNED AND REPOSITIONED. SR ON MONITOR. RIGHT FEMORAL TLC-ALL PORTS HAVE GOOD BLOOD RETURN, FLUSHED AND PATENT.
[2020-01-29 06:02] LABS: ALBUMIN 2.5 g/dL (3.2-5.0); ALKALINE PHOSPHATASE 95 u/l (38-126); ANION GAP 10 (6-22 (CALC)); BILIRUBIN, TOTAL 0.7 mg/dL (0.0-1.4); BUN 30 mg/dL (8-23); BUN/CREATININE RATIO 35 (12-20 (CALC)); CARBON DIOXIDE 27 mmol/l (22-30); CHLORIDE 108 mmol/l (95-108); CREATININE 0.8 mg/dL (0.5-1.0); GFR > 60 ML/MIN (>=60 (CALC)); GFR FOR AFR.AMER. > 60 ML/MIN (>=60 (CALC)); POTASSIUM 3.3 mmol/l (3.5-5.1); SGOT/AST 37 u/l (9-36); SODIUM 141 mmol/l (137-146); TOTAL PROTEIN 5.2 g/dL (6.3-8.2)
[2020-01-29 06:14] LABS: C-REACTIVE PROTEIN > 27.0 mg/dL (0-0.9)
--- NOTE | 2020-01-29 08:17 | NUR ---
pt remains on vent, not arousable at this time due to diprovan, swelling noted to chirag extremeties.
--- NOTE | 2020-01-29 12:53 | NUR ---
DAUGHTER CALLED FOR UPDATE ON MOTHER. VERY GRATEFUL FOR OUR CARE AND IS SENDING JIN IN LATER FOR THANK YOU GIFT. PT RESTING QUIETLY ON BED, BREATHING IN BETWEEN VENT SETTINGS. BAG OF LEVOPHED HUNG FOR BLOOD PRESSURE REMAINING LOW. 93/77.
--- NOTE | 2020-01-29 13:42 | NUR ---
PT TO ROOM PER NURSING STAFF IN STRETCHER,
--- NOTE | 2020-01-29 15:39 | NUR ---
PTS DAUGHTER CALLED AND WANTS TO COMMUNITY RELATIONS REPRESENTATIVE PTS IPAD AND PHONE, WENT INTO PTS ROOM AND ASKED PT IF DAUGHTER COULD COMMUNITY RELATIONS REPRESENTATIVE HER IPAD AND PHONE AND IF YES SQUEEZE MY HAND IF NOT DONT DO ANYTHING. PT SQUEEZED MY HAND, ASKED PT IF THAT WAS VERBAL CONSENT TO BLINK EYES AND PTS BLINKED EYES SEVERAL TIMES
--- NOTE | 2020-01-29 16:23 | NUR ---
CALLED RT TO COME CHECK VENT SETTINGS ON PT, SATS ARE DOWN TO 80%
--- NOTE | 2020-01-29 16:41 | NUR ---
ERLIN WAS ALSO PICKED UP BY FARHAN FROM ER WAITING ROOM, PAPER SIGNED AND PLACED IN CHART OF DAY AND PERSON THAT PICKED UP ITEMS
--- NOTE | 2020-01-29 19:15 | NUR ---
DR MONSON PHONE IN FOR CONDITION UPDATE. NEW ORDERS RECEIVED.
--- NOTE | 2020-01-29 19:30 | NUR ---
ABG RESULTS REPORTED TO DR MONSON. NEW ORDERS RECEIVED.
--- NOTE | 2020-01-29 19:45 | NUR ---
PATIENT REMAINS INTUBATED ON VENT. SEDATED ON PROPOFOL WITH RASS -3. VENT SETTINGS TV 450-FIO2 100%, A/C RATE 18, PEEP 15. RESP RATE 28. SUX ETT AND ORALLY FOR SMALL AMOUNT OF CLEAR SECRETIONS. BREATH SOUNDS COARSE THROUGHOUT LUNG BARBA. O2 SAT 90% OG TUBE TO LIS DRAINS GREENISH BROWN GASTRIC CONTENTS. HYPOACTIVE BOWEL SOUNDS HEARD. DA SILVA DRAINS SKY URINE WITH GREEN-BLUE TINT. SCD'S ON BILATERALLY. RIGHT FEMORAL TLC INTACT, DSG CDI, NS INFUSING AT KVO, LEVOPHED AT 2MCG AND PROPOFOL AT 45 MCG. SALINE LOCK INTATC TO LAC. INDUSTRIAL AUTOMATION SPECIALIST SHOWS SR-ST. TURNED AND REPOSITIONED ONTO RIGHT SIDE.
--- NOTE | 2020-01-29 21:00 | NUR ---
DAUGHTER REDD PHONED IN, UPDATED ON HER MOTHERS CONDITION.
--- NOTE | 2020-01-29 22:00 | NUR ---
TURNED AND REPOSITONED. VSS. SR-ST ON MONITOR.
--- NOTE | 2020-01-29 23:55 | NUR ---
DIURESING WELL FROM LASIX GIVEN EARLIER. TURNED AND REPOSITIONED. VSS. SR-ST ON MONITOR. O2 SAT 96% VENT SETTINGS PREVIOUSLY REPORTED.
[2020-01-30] VITALS (20 sets, daily range): BP systolic 90–154; BP diastolic 37–64
--- NOTE | 2020-01-30 02:00 | NUR ---
NO CHANGES TO REPORT. VENT SETTINGS UNCHANGED. O2 SAT 94-96% SR-ST ON MONITOR.
--- NOTE | 2020-01-30 04:00 | NUR ---
REPOSITIONED. VSS. REMAINS SEDATED ON VENT.
[2020-01-30 05:54] LABS: BASO% 0 % (0-3); EOS% 0 % (0-8); HEMATOCRIT 34.3 % (37.0-47.0); HEMOGLOBIN 10.8 g/dl (12.0-16.0); IMMATURE GRANULOCYTES 3.1 % (0.0-5.0); LYMPH% 6 % (15-41); MEAN CELL VOLUME 96.6 fL CALC (80.0-100.0); MEAN CORPUSCULAR HGB 30.4 pG CALC (26.0-32.0); MEAN CORPUSCULAR HGB CONC 31.5 g/dL CAL (32.0-36.0); MONO% 3 % (2-13); NEUT% 88 % (42-76); RED BLOOD COUNT 3.55 mill/uL (4.20-5.60); RED CELL DISTRI WIDTH 13.6 % (11.5-15.5)
--- NOTE | 2020-01-30 06:00 | NUR ---
REMAINS SEDATED ON VENT. RATE INCREASED TO 20 BY RT AFTER AM ABG'S.
[2020-01-30 06:39] LABS: PLATELET COUNT 289 thou/uL (130-400)
[2020-01-30 06:46] LABS: ALBUMIN 2.3 g/dL (3.2-5.0); ALKALINE PHOSPHATASE 90 u/l (38-126); ANION GAP 8 (6-22 (CALC)); BILIRUBIN, TOTAL 0.8 mg/dL (0.0-1.4); BUN 22 mg/dL (8-23); BUN/CREATININE RATIO 28 (12-20 (CALC)); CARBON DIOXIDE 31 mmol/l (22-30); CHLORIDE 106 mmol/l (95-108); CREATININE 0.8 mg/dL (0.5-1.0); GFR > 60 ML/MIN (>=60 (CALC)); GFR FOR AFR.AMER. > 60 ML/MIN (>=60 (CALC)); POTASSIUM 3.5 mmol/l (3.5-5.1); SGOT/AST 34 u/l (9-36); SODIUM 142 mmol/l (137-146); TOTAL PROTEIN 5.1 g/dL (6.3-8.2)
[2020-01-30 06:52] LABS: C-REACTIVE PROTEIN > 9.0 mg/dL (0-0.9)
--- NOTE | 2020-01-30 07:24 | NUR ---
PT REPORT RECEIVED FROM ANESTHESIA ASSISTANT. PT REMAINS ON VENT, AND IVPB FOR SEDATION AND BLOOD PRESSURE
--- NOTE | 2020-01-30 09:50 | NUR ---
DAUGHTER REQUESTED TO SPEAK WITH DR. MONSON WHEN HE HAS THE CHANCE. STAFF GOT THE DAUGHTER ON PHONE AND IS SPEAKING WITH HER AT THIS TIME
--- NOTE | 2020-01-30 11:14 | NUR ---
PT REMAINS ON VENT, WITH SETTINGS TO KEEP PTS OXYGEN LEVEL UP AND BLOOD PRESSURE REMAINS STABLE ON LEVOPHED. SLIGHTLY LESS EDEMA TO JULIANNE ARMS. GOOD URINE OUTPUT AT THIS TIME
--- NOTE | 2020-01-30 12:49 | NUR ---
LARGE BM PER PT. PT CLEANED UP AND LINENS ON BED CHANGED.
--- NOTE | 2020-01-30 15:58 | NUR ---
DECREASED DIPROVAN TO 30 MCG TO SEE HOW WELL PT RESPONDS AND AROUSES TO VERBAL STIMULI. AND LEVOPHED TO 4 FOR BLOOD PRESSURE OF 135/55
--- NOTE | 2020-01-30 18:10 | NUR ---
NO CHANGE IN PT STATUS, VITAL SIGNS REMAIN STABLE WITH PT ON VENT, LEVOPHED,AND DIPROVAN. IF LIGHTLY SHAKE PT, SHE WILL OPEN EYES AND MOVE HANDS, SHE WILL SQUEEZE YOUR HAND IN ANSWER TO A YES OR NO QUESTION.
--- NOTE | 2020-01-30 20:00 | NUR ---
PATIENT REMAINS SEDATED ON VENTILATOR. VENT SETTINGS-TV 450, A/C RATE 20, FIO2 100%, PEEP 15. RR 20'S. BREATH SOUNDS DIMINISHED THROUGHOUT. SUX ETT AND ORALLY FOR SCANT SECRETIONS. ORAL CARE PROVIDED, LIP BALM APPLIED. LIPS DRY AND CRACKED. OG TUBE TO LIS DRAINS GREENISH-BROWN MATERIAL. ABD SOFTLY DISTENDED WITH NORMAL BOWEL SOUNDS HEARD. DA SILVA DRAINS SLIGHTLY CLOUDY WITH GREENISH-BLUE TINT. GENERALIZED EDEMA PRESENT. PERIPHERAL PULSES PALPABLE. RIGHT FEMORAL TLC IN PLACE WITH NS INFUSING AT 25 ML/HR, PROPOFOL AT 30 MCG AND LEVOPHED AT 4 MCG, DSG CDI, SITE BENIGN. PRESIDENT SALES AND MARKETING SHOWS SR-ST. ON AIR MATTRESS. TURNED AND REPOSITIONED.
--- NOTE | 2020-01-30 22:00 | NUR ---
VSS. ST ON MONITOR. O2 SAT GREATER THAN 95% TURNED AND REPOSITONED.
--- NOTE | 2020-01-30 22:30 | NUR ---
PATIENT INCONTINENT OF MODERATE LIQUID DARK BROWN STOOL. COMPLETE BED BATH AND LINEN CHANGE DONE BY CNAS.
[2020-01-31] VITALS (26 sets, daily range): BP systolic 94–170; BP diastolic 44–72
--- NOTE | 2020-01-31 | NUR ---
VENT SETTING UNCHANGED. RR 20'S. O2 SAT 93% SR-ST ON MONITOR.
--- NOTE | 2020-01-31 02:00 | NUR ---
ST ON MONITOR. O2 SAT 89-90%
--- NOTE | 2020-01-31 05:00 | NUR ---
LEVOPHED IS OFF. BP STABLE. ST ON MONITOR. VSNT SETTINGS UNCHANGED. XRAY HERE FOR PCXR.
[2020-01-31 06:04] LABS: ALBUMIN 2.4 g/dL (3.2-5.0); ALKALINE PHOSPHATASE 99 u/l (38-126); ANION GAP 14 (6-22 (CALC)); BUN 26 mg/dL (8-23); BUN/CREATININE RATIO 27 (12-20 (CALC)); CARBON DIOXIDE 27 mmol/l (22-30); CHLORIDE 109 mmol/l (95-108); GFR 54 ML/MIN (>=60 (CALC)); GFR FOR AFR.AMER. > 60 ML/MIN (>=60 (CALC)); POTASSIUM 3.6 mmol/l (3.5-5.1); SGOT/AST 31 u/l (9-36); SODIUM 146 mmol/l (137-146); TOTAL PROTEIN 5.4 g/dL (6.3-8.2)
--- NOTE | 2020-01-31 07:40 | NUR ---
RECEIVED REPORT FROM FINA WHITE.
--- NOTE | 2020-01-31 08:00 | NUR ---
PT SEMIFOWLERS IN BED. ATTACHED TO MONITOR. VENTILATED. IV MEDS INFUSING WITHOUT DIFFICULTY. DA SILVA DRAINING CLEAR YELLOW URINE. NO DISTRESS NOTED.
--- NOTE | 2020-01-31 08:26 | NUR ---
CHANGED FIO2 TO 65%. SPO2 IS 91%.
--- NOTE | 2020-01-31 10:00 | NUR ---
NO CHANGE FROM PREVIOUS NOTE. CONTINUING TO MONITOR. VITALS STABLE ON MONITOR. SPOKE WITH DAUGHTER REDD REGARDING UPDATE ON PT.
--- NOTE | 2020-01-31 12:10 | NUR ---
IV MEDS CONTINUE INFUSE WITHOUT DIFFICULTY. PULMOCARE ADMINISTERED VIA OG TUBE. VITALS STABLE. TYLENOL GIVEN FOR LOW GRADE TEMP. WILL CONTINUE TO MONITOR.
--- NOTE | 2020-01-31 14:02 | NUR ---
PT REMAINS INTUBATED, STABLE ON MONITOR, DA SILVA DRAINING CLEAR YELLOW URINE. NO CHANGES
--- NOTE | 2020-01-31 16:05 | NUR ---
REQUEST FOR TRANSFER SENT TO [facility]; SPOKE WITH [facility] AT TRANSFER CENTER. [employer] NOTES FAXED.
--- NOTE | 2020-01-31 16:05 | NUR ---
IV MEDS INFUSING WITHOUT DIFFICULTY. PT HAD LARGE BM, LINENS CHANGED, PT REPOSITIONED.
--- NOTE | 2020-01-31 18:02 | NUR ---
PT REMAINS INTUBATED. VITALS STABLE ON MONITOR. IV MEDS CONTINUE TO INFUSE WITHOUT COMPLICATIONS. DA SILVA DRAINING DARK YELLOW URINE.
--- NOTE | 2020-01-31 19:00 | NUR ---
REQUEST FOR TRANSFER DENIED BY [facility].
--- NOTE | 2020-01-31 19:10 | NUR ---
PT NPO AT THIS TIME. OG TUBE PLACEMENT CONFIRMED BY AUSCULTATION. 10ML RESIDUAL NOTED. FLUSHED WITH 120ML WATER, 1 CAN PULMOCARE BOLUS VIA OG TUBE. FLUSHED WITH 120 ML WATER AT THIS TIME. MEDICATED VIA OG TUBE. HOB REMAINS AT 30 DEGREES. NO APPARENT DISTRESS NOTED. PT TOLERATED WELL. SUCTION HELD AT THIS TIME. WILL CONTINUE TO MONITOR.
--- NOTE | 2020-01-31 19:30 | NUR ---
REPORT RECEIVED FROM Darleen CARRANZA RN, CARE OF PT ASSUMED AT THIS TIME.
--- NOTE | 2020-01-31 20:30 | NUR ---
Sp02 SUSTAINING AT 88%. DEEP SUCTION PERFORMED AND PT REPOSITIONED. Sp02 INCREASED T0 96%. DISCUSSED WITH DR. MONSON POSSIBILITY OF PRONING PT AND CONCERNS FOR ASPIRATION RISKS WITH TUBE FEEDINGS. ORDER IS TO HOLD TUBE FEED FOR THE REST OF THE NIGHT.
--- NOTE | 2020-01-31 21:30 | NUR ---
CALL RECEIVED FROM PT'S DAUGHTER REDD REDD PROVIDES APPROPRIATE COMMUNICATION CODE. UPDATE PROVIDED TO DAUGHTER.
--- NOTE | 2020-01-31 21:45 | NUR ---
NEW BOTTLE PROPOFOL HUNG, TUBING CHANGED.
--- NOTE | 2020-01-31 22:30 | NUR ---
PT REMAINS SEDATED AND ON VENT, PROPOFOL, INFUSING TO RIGHT FEMORAL TLC. OG TO LIS WITH MINIMAL BROWNISH OUTPUT. SLOPE TENDER WITH CONTINOUS PULSE-OX AND NIBP IN PLACE. HEMODYNAMICS STABLE. DA SILVA SECURED, UNKINKED AND UNOBSTRUCTED, DRAINING TO GRAVITY. SCDS TO BLE.
[2020-02-01] VITALS (28 sets, daily range): BP systolic 96–169; BP diastolic 46–80
--- NOTE | 2020-02-01 00:30 | NUR ---
PT REMAINS SEDATED AND ON VENT, PROPOFOL, INFUSING TO RIGHT FEMORAL TLC. OG TO LIS WITH MINIMAL BROWNISH OUTPUT. ROOFING FOREMAN WITH CONTINOUS PULSE-OX AND NIBP IN PLACE. HEMODYNAMICS STABLE. DA SILVA SECURED, UNKINKED AND UNOBSTRUCTED, DRAINING TO GRAVITY. SCDS TO BLE.
--- NOTE | 2020-02-01 01:00 | NUR ---
BED BATH AND LINEN CHANGE COMPLETED BY Cornell CARRANZA CNA AND KATHRYN MERCHANT.
--- NOTE | 2020-02-01 02:30 | NUR ---
PT REMAINS SEDATED AND ON VENT, PROPOFOL, INFUSING TO RIGHT FEMORAL TLC. OG TO LIS WITH MINIMAL BROWNISH OUTPUT. TEST HOLE DRILLER WITH CONTINOUS PULSE-OX AND NIBP IN PLACE. HEMODYNAMICS STABLE. DA SILVA SECURED, UNKINKED AND UNOBSTRUCTED, DRAINING TO GRAVITY. SCDS TO BLE.
--- NOTE | 2020-02-01 05:00 | NUR ---
SEAN TRUJILLO IN ROOM TO DRAW AM SHIREEN.
--- NOTE | 2020-02-01 05:20 | NUR ---
BOX BENDER IN ROOM TO COMPLETE AM PCXR.
--- NOTE | 2020-02-01 05:21 | NUR ---
SEAN TRUJILLO IN ROOM TO DRAW AM SHIREEN.
[2020-02-01 05:43] LABS: HEMATOCRIT 34.3 % (37.0-47.0); HEMOGLOBIN 11.1 g/dl (12.0-16.0); IMMATURE GRANULOCYTES 0.5 % (0.0-5.0); MEAN CORPUSCULAR HGB 28.8 pG CALC (26.0-32.0); MEAN CORPUSCULAR HGB CONC 32.4 g/dL CAL (32.0-36.0); NEUT# 14.06 thou/uL (2.00-7.15); RED BLOOD COUNT 3.86 mill/uL (4.20-5.60); RED CELL DISTRI WIDTH 14.2 % (11.5-15.5)
[2020-02-01 06:10] LABS: MEAN CELL VOLUME 88.9 fL CALC (80.0-100.0)
[2020-02-01 06:12] LABS: ALBUMIN 2.2 g/dL (3.2-5.0); ALKALINE PHOSPHATASE 56 u/l (38-126); BUN 35 mg/dL (8-23); BUN/CREATININE RATIO 39 (12-20 (CALC)); CHLORIDE 100 mmol/l (95-108); CREATININE 0.9 mg/dL (0.5-1.0); GFR > 60 ML/MIN (>=60 (CALC)); GFR FOR AFR.AMER. > 60 ML/MIN (>=60 (CALC)); POTASSIUM 3.6 mmol/l (3.5-5.1); SGOT/AST 42 u/l (9-36); TOTAL PROTEIN 4.5 g/dL (6.3-8.2)
[2020-02-01 06:23] LABS: ANION GAP 7 (6-22 (CALC)); BILIRUBIN, TOTAL 1.6 mg/dL (0.0-1.4); C-REACTIVE PROTEIN > 27.0 mg/dL (0-0.9); CARBON DIOXIDE 35 mmol/l (22-30); SODIUM 138 mmol/l (137-146)
--- NOTE | 2020-02-01 06:42 | NUR ---
01/31/20 PT note Patient is seen for ROM all extremities. She does not respond to verbal or tactile cues today. She was positioned in sidelying and adequately positionned for skin protection and pulmonary toilet. Am Pac is 6 Our plan is to continue assisting with positioning and pulmonary toilet with ROM
--- NOTE | 2020-02-01 07:30 | NUR ---
REPORT RECEIVED FROM FINA KEMP. PT RESTING ON AIRMATTRESS IN SEMI FOWLERS AND POSITIONED WITH PILLOWS. INTUBATED WITH VENT SETTINGS 20/450/80%/15; SPO2 98%. SEDATED WITH PROPOFOL INFUSING AT 30 MCG/KG/MIN; RASS SCORE OF -5. NS ALSO INFUSING AT 25 ML/HR INTO R FEM TL; DRESSING CDI. OG TUBE CONNECTED TO LIS WITH MINIMAL DARK BROWN GASTRIC CONTENT. DA SILVA DRAINING CLEAR SKY URINE IN ADEQUATE AMOUNTS. SCDS INTACT TO BLE. PT INCONTINENT OF LOOSE DARK BROWN BM. LUNGS ARE CLEAR; SINUS SHAHANZ ON SAMPLE TESTER WITH HEART RATE LOW 45; PROPOFOL TITRATED DOWN TO 25 AT THIS TIME; BLOOD PRESSURE STABLE. ABDOMEN DISTENDED AND SOFT WITH HYPOACTIVE BS X 4. EDEMA TO ALL EXTREMITIES ESPECIALLY HANDS AND 1+ PEDAL EDEMA; ELEVATED ON PILLOWS. SAFETY MEAURES IN PLACE; CURTAIN OPEN FOR VISUALIZATION OF PATIENT FROM NURSES DESK. NEEDS ARE ANTICIPATED BY STAFF.
--- NOTE | 2020-02-01 07:48 | NUR ---
PHYSICAL THERAPY AT BEDSIDE; ASSISTED WITH HYGIENE FOR BM AND PASSIVE ROM. PT REMAINS SINUS SHAHNAZ AND PROPOFOL CONTINUES TO BE TIRATED DOWN.
--- NOTE | 2020-02-01 08:25 | NUR ---
PROPOFOL COMPLETED WEANED OFF AT THIS TIME; PT REMAINS ONLY RESPONSIVE TO PAIN; FACIAL GRIMACING TO STERNAL RUB AND PRESSING ON FINGERNAIL BED. SPO2 98% WITH CURRENT VENT SETTINGS; RT AT BEDSIDE; FIO2 DECREASED TO 70%. HEAR RATE 51. WILL CONTINUE TO MONITOR.
--- NOTE | 2020-02-01 09:26 | NUR ---
DR. LOWE AT BEDSIDE FOR EVAL. NEW ORDER FOR ONE TIME DOSE OF LASIX.
--- NOTE | 2020-02-01 10:00 | NUR ---
DR. LOWE SPEAKING ON THE PHONE WITH DAUGHTER, REDD. UPDATING ON CONDITION AND DISCUSSING PLAN OF CARE.
--- NOTE | 2020-02-01 11:08 | NUR ---
AM MEDS GIVEN WITH TYLENOL; BOLUS TUBE FEED ALSO GIVEN NOW; OK TO RESTART BOLUS TUBE FEEDS PER DR. LOWE. PT REMAINS RESPONSIVE ONLY TO PAIN. RESTING NOW IN HIGH FOWLERS FOR ASPIRATION PRECAUTIONS AND OG TUBE IS CLAMPED.
--- NOTE | 2020-02-01 12:50 | NUR ---
PT MORE AWAKE AND SLOWLY SHIFTING HER BODY AROUND IN THE BED; OPENS HER EYES AND REACHES HER LEFT HAND UP TO ET TUBE; RESTRAINTS APPLIED AT THIS TIME WITH ORDER FROM DR. LOWE. RESPIRATIONS ARE AT 28, PT BREATHING 8 TIMES MORE A MINUTE THAN VENT SETTINGS. PT FOLLOWS COMMANDS TO BLINK HER EYES AT TIMES, BUT NOT EVERY TIME; DOES NOT FOLLOW COMMANDS TO SQUEEZE HANDS. SHAKES HER HEAD WHEN ASKED AND SHOOK HER HEAD SIDE TO SIDE WHEN ASKED IF SHE WAS HAVING PAIN, BUT RESPONSE IS DELAYED; SHE DOES NOT MAKE EYE CONTACT. SPO2 90%. RT AT BEDSIDE FOR ABG.
--- NOTE | 2020-02-01 13:24 | NUR ---
ABG RESULTS CALLED TO DR. LOWE; FIO2 INCREASED TO 100%. DIPRIVAN RESTARTED AT THIS TIME.
--- NOTE | 2020-02-01 14:15 | NUR ---
NEW BOTTLE OF PROPOFOL HUNG AND NEW TUBING PRIMED AT THIS TIME; CURRENTLY INFUSING AT 20 MCG/KG/MIN. REMDESIVIR INFUSING WELL. PT CONTINUES TO MOVE HEAD AND LEGS; WILL CONTINUE TO MONITOR.
--- NOTE | 2020-02-01 15:28 | NUR ---
BOLUS FEED GIVEN ALONG WITH SCHEDULED GABAPENTIN. NO RESIDUAL NOTED AND PLACEMENT VERIFIED PRIOR TO FEED. PT NOW RESTING IN HIGH FOWLERS WITH BILATERAL SOFT WRIST RESTRAINTS IN PLACE; REMOVED FOR REPOSITIONING. PROPOFOL TITRATED UP TO 30 MCG/KG/MIN DUE TO CONTINUED RESTLESSNESS.
--- NOTE | 2020-02-01 16:30 | NUR ---
RECONNECTED TO SUCTION ONE HOUR AFTER TUBE FEED.
--- NOTE | 2020-02-01 18:30 | NUR ---
PT RESTING WITH NO SIGNS OF DISTRESS AND RASS SCORE OF -4; PROPOFOL CONTINUES TO INFUSE AT 30 MCG/KG/MIN. SINUS SHAHNAZ ON TUTORING MANAGER LOW 45, BUT DOES NOT GO BELOW 45. WILL CONTINUE TO MONITOR VSS CLOSELY. PT RESPOSITIONED WITH PILLOWS.
--- NOTE | 2020-02-01 19:00 | NUR ---
REPORT RECEIVED FROM Keo FRANKLIN RN, CARE OF PT ASSUMED AT THIS TIME.
--- NOTE | 2020-02-01 20:10 | NUR ---
PT MEDICATED ORDERED. OG TUBE PLACEMENT VERIFIED VIA AUSCULTATION. FLUSHED WITH WATER BEFORE AND AFTER MEDICATION ADMINISTRATION, SUCTION HELD AT THIS TIME. MONITORS IN PLACE. VSS. WILL CONTINUE TO MONITOR.
--- NOTE | 2020-02-01 21:25 | NUR ---
CALL RECEIVED FROM PTS DAUGHTER REDD LÓPEZ, APPROPRIATE COMMUNICATION CODE PROVIDED. UPDATES ON PTS STATUS AND PLAN OF CARE PROVIDED. QUESTIONS ANSWERED. DAUGHTER DENIES FURTHER QUESTIONS.
--- NOTE | 2020-02-01 23:01 | NUR ---
PT NPO AT THIS TIME. OG TUBE PLACEMENT CONFIRMED BY AUSCULTATION. NO RESIDUAL NOTED. FLUSHED WITH 120ML WATER, 1 CAN PULMOCARE BOLUS VIA OG TUBE. FLUSHED WITH 120 ML WATER AT THIS TIME. HOB REMAINS AT 30 DEGREES. NO APPARENT DISTRESS NOTED. PT TOLERATED WELL. SUCTION HELD AT THIS TIME. WILL CONTINUE TO MONITOR.
[2020-02-02] VITALS (29 sets, daily range): BP systolic 101–173; BP diastolic 50–70
--- NOTE | 2020-02-02 01:00 | NUR ---
PT REMAINS SEDATED AND ON VENT, PROPOFOL, INFUSING TO RIGHT FEMORAL TLC. OG TO LIS WITH MINIMAL BROWNISH OUTPUT. BOTTOM LIQUOR ATTENDANT WITH CONTINOUS PULSE-OX AND NIBP IN PLACE. HEMODYNAMICS STABLE. DA SILVA SECURED, UNKINKED AND UNOBSTRUCTED, DRAINING TO GRAVITY. SCDS TO BLE.
--- NOTE | 2020-02-02 03:43 | NUR ---
BED BATH AND LINEN CHANGE BY Kelli WASHINGTON LPN AND Fuentes HICKS GARNETT MACHINE OPERATOR.
--- NOTE | 2020-02-02 04:04 | NUR ---
DRESSING CHANGE TO R GROIN SUBCLAVIAN TLC CHANGED.
--- NOTE | 2020-02-02 04:06 | NUR ---
DRESSING TO R-GROIN TLC CHANGED.
--- NOTE | 2020-02-02 05:17 | NUR ---
ABG BY Katalina CLEMENT RRT.
--- NOTE | 2020-02-02 05:42 | NUR ---
PROPOFOL TUBING CHANGED.
--- NOTE | 2020-02-02 05:50 | NUR ---
WET PROCESS TECHNICIAN IN ROOM FOR PCXR.
--- NOTE | 2020-02-02 06:30 | NUR ---
OG TUBE ADVANCED BY 10CM PER WILMA IN RADIOLOGY.
--- NOTE | 2020-02-02 07:25 | NUR ---
REPORT RECEIVED FROM FINA KEMP. PHYSICAL THERPAY AT BEDSIDE WORKING WITH PT AND REPOSITIONED PT ON FAR LEFT SIDE; RESTING ON AIRMATTRESS. INTUBATED FOR THE 8TH DAY WITH VENT SETTINGS OF 20/450/100%/15. R FEM TLC WITH DRESSING CDI. PROPOFOL INFUSING AT 30 MCG/KG/MIN AND NS AT 25 ML/HR. OG TUBE TO LIS; 500 ML OF CREAMY GASTRIC CONTENT EMPTIED FROM CANISTER CONSISTENT WITH PULMCARE BOLUS FEEDS. ORAL SUCTIONG DONE FOR SMALL AMOUNT OF THIN WHITE SECRETIONS; LUNGS HAVE WHEEZING THROUGHOUT. HEART RATE REGULAR; SINUS RHYTHM ON CARDIAC MONTIOR HEART RATE 61. DEPENDENT EDEMA TO HANDS AND FEET. DA SILVA DRAINING CLEAR YELLOW URINE IN ADEQUATE AMOUNTS; LEG STRAP SECURED TO LEFT THIGH. SCDS INTACT TO BLE. REMAINS ON AIRBORNE/CONTACT PRECAUTIONS. SAFETY MEASURES IN PLACE. NEEDS ARE ANTICIPATED BY STAFF.
--- NOTE | 2020-02-02 09:14 | NUR ---
02/02/20 PT note Patient is seen for PROM all extremities. She did not respnd to VC to assist with ROM. HR bradycardic 40-50bom. She was positioned 3/4 prone with care taken to avoid disrupting the ET tube and the triple lumen. Her skin condition is good and it is obvious the nursing staff is doing a good job of caring for her. Her PEEP remains high Am Pac is 6
--- NOTE | 2020-02-02 09:16 | NUR ---
02/02/20 PT note Patient is seen as before . Her PEEP is reduced to 12.5% and she seems to tolerate the position change without difficulty although she is not respnding to tactile and verbal cues. Our plan is to continue proning as best we can as well as ROM Am Pac remains 6
--- NOTE | 2020-02-02 10:04 | NUR ---
DR. LOWE AT BEDSIDE FOR EVAL. VERBAL ORDERS TO TIRATE SEDATION; WILL ASSESS ORIENTATION STATUS. PROPOFOL TITRATED DOWN AT THIS TIME.
--- NOTE | 2020-02-02 10:09 | NUR ---
PROPOFOL NOW TITRATED OFF COMPLETE; WRIST RESTRAINTS APPLIED TO PREVENT PULLING ET TUBE OUT; PT IS MOVING EXTREMITIES AND HEAD AROUND SLOWLY. WILL CONTINUE TO MONITOR. REPOSITIONED INTO SEMI FOWLERS.
--- NOTE | 2020-02-02 11:05 | NUR ---
PT AWAKE AND DROWSY; OPENS EYES A SMALL AMOUNT, BUT MOSTLY KEEPS THEM CLOSED. SHE IS ABLE TO FOLLOW COMMANDS TO SQUEEZE FINGERS; DOES SO VERY LIGHTLY. BLINKS HER EYES AND SHAKES HER HEAD TO YES OR NO QUESTIONS. PT UPDATED ON HER CONDITION AND PROGRNOSIS INCLUDING PROBABILITY OF TRACH PLACMENT IF AGRESSIVE MEASURES ARE REQUESTED; PT SHAKES HER HEAD SIDE TO SIDE TO INDICATE "NO" WHEN ASKED IF SHE WANTS A TRACHEOSTOMY. EXPLAINED PRONOSIS OF EXTUBATION WITHOUT TRACH AND SHE AGAIN SHAKES HER HEAD NO. DR. LOWE NOTIFIED OF PATIENTS COGNITIVE STATE. RESTRAINTS REMAIN IN PLACE AND GOOD CSM TO HANDS.
--- NOTE | 2020-02-02 12:04 | NUR ---
DR. LOWE AT BEDSIDE TO ASK QUESTIONS ABOUT TREATMENT OPTIONS. WHEN ASKED IF SHE WANTS AGRESSIVE TREATMENT INCLUDING A TRACH AND TRANSFER TO ANOTHER FACILITY, BUT NODS HER HEAD YES THAT SHE WANTS AGRESSIVE TREATMENT. DR. LWOE GAVE VERBAL ORDER TO TRANSFER TO [facility]. DR. LOWE CALLING DAUGHTER TO UPDATE HER. PT RESTARTED ON DIPRIVAN. BLOOD PRESSURE ELEVATED; WILL CONTINUE TO MONITOR SHE IS MORE SEDATED.
--- NOTE | 2020-02-02 12:57 | NUR ---
VERBAL CONSENT OBTAINED FROM REDD, DAUGHTER, TO DR. LOWE FOR TRANSFER TO [facility]. SPOKE WITH MARCIAL AT [facility]SFER [facility] AND FACESHEET FAXED.
--- NOTE | 2020-02-02 14:31 | NUR ---
PT REPOSITIONED IN BED; REMDESIVIR INFUSING AT THIS TIME. VSS. PROPOFOL NOW INFUSING AT 20 MCG/KG/MIN; PT SEDATED WITH RASS SCORE OF -3. TUGS GENTLY ON RESTRAINTS.
--- NOTE | 2020-02-02 16:07 | NUR ---
PROPOFOL TITRATED UP AND NOW AT 30 MCG/KG/MIN DUE TO PT RESTLESSNESS AND INCREASED BLOOD PRESSURE. PT RESPOSITIONED WITH AIR MATTRESS. AWAITING CALL BACK FROM [facility].
--- NOTE | 2020-02-02 17:10 | NUR ---
PRIOR TO SCHEDULED OG TUBE FEED PT NOTED TO HAVE VERY LARGE LOOSE DARK BROWN BOWEL MOVEMENT; DURING HYGIENE PT CONTINUES MODERATE AMOUNTS OF WATERY LEAKAGE; COMPLETED HYGIENE AND PT AGAIN HAD MODERATE DARK BROWN WATERY STOOL WITH CONTINUOUS OUTPUT. PT ALSO HAVING INCREASED AMOUNT OF DARK BROWN GASTRIC CONTENT WITH 300ML OUT THIS SHIFT. ABDOMEN DISTENDED AND SOFT; UNABLE TO AUSCULTATE BOWEL SOUNDS X 4 QUADRANTS. STOOL SAMPLE COLLECTED AND SENT TO LAB. DR. LOWE NOTIFIED OF CHANGE AND ABDOMINAL XRAY ORDERED AT THIS TIME. BOLUS FEED HELD.
--- NOTE | 2020-02-02 17:15 | NUR ---
ALSO NOTIFIED BY DR. LOWE THAT [facility] TRANSFER DUE TO RISK OF HIGH VENTILATOR SETTINGS INCLUDING PEEP OF 15. SHAVING MACHINE OPERATOR UPDATED.
--- NOTE | 2020-02-02 17:47 | NUR ---
RADIOLOGY AT BEDSIDE FOR PORTABLE 1V ABDOMEN XRAY.
--- NOTE | 2020-02-02 18:15 | NUR ---
DAUGHTER, REDD, UPDATED ON THE PHONE BY DR. LOWE REGARDING NO TRANSFER TO [facility]. NURSE ALSO UPDATED HER ON NEW SYMPTOMS.
--- NOTE | 2020-02-02 18:30 | NUR ---
DR. LOWE NOTIFIED OF NEW LAB RESULTS AND SYMPTOMS INCLUDING DECREASED, BUT STABLE BLOOD PRESSURE, HGB DROP, AND POSITIVE OCCULT BLOOD. NEW ORDERS FOR I UNIT OF PRBC'S, H&H LAB Q6HRS, PROTONIX GTT, AND MAKE PT NPO.
[2020-02-02 18:37] LABS: HEMATOCRIT 28.9 % (37.0-47.0); HEMOGLOBIN 9.5 g/dl (12.0-16.0); IMMATURE GRANULOCYTES 4.7 % (0.0-5.0); MEAN CELL VOLUME 94.4 fL CALC (80.0-100.0); MEAN CORPUSCULAR HGB CONC 32.9 g/dL CAL (32.0-36.0); NEUT# 10.78 thou/uL (2.00-7.15); RED BLOOD COUNT 3.06 mill/uL (4.20-5.60); RED CELL DISTRI WIDTH 13.9 % (11.5-15.5)
--- NOTE | 2020-02-02 18:55 | NUR ---
blood drawn & sent to lab.
--- NOTE | 2020-02-02 19:15 | NUR ---
vent cont unassisted by pt. engine monitor shows sinus korey 1st degree avb hr 50. rt groin site cont. ns infusing @ 25cchr, propofol infusing @ 30mcg/min. ng cont to lis draining black. arias cath in place. urine cloudy yellow. requires total care for all needs. air mattress, bilat scds, fall & air/contact precautions cont. turned & repositioned.
--- NOTE | 2020-02-02 20:05 | NUR ---
dimas scherer(daughter) notified of physician order for blood. consent obtained.
--- NOTE | 2020-02-02 20:37 | NUR ---
#1 unit blood began.
--- NOTE | 2020-02-02 22:00 | NUR ---
vent cont unassisted by pt. health program analyst shows sinus korey 1st degree avb hr 50.
--- NOTE | 2020-02-02 23:00 | NUR ---
#1 unit blood infused.
--- NOTE | 2020-02-02 23:50 | NUR ---
blood drawn & sent to lab.
[2020-02-03] VITALS (18 sets, daily range): BP systolic 76–172; BP diastolic 33–67
[2020-02-03 00:32] LABS: HEMATOCRIT 33.8 % (37.0-47.0); HEMOGLOBIN 10.8 g/dl (12.0-16.0)
--- NOTE | 2020-02-03 02:00 | NUR ---
resting quietly. 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
--- NOTE | 2020-02-03 04:00 | NUR ---
vent cont unassisted by pt. lunchroom monitor shows sinus rhythm hr 66.
--- NOTE | 2020-02-03 04:30 | NUR ---
incont of stool. winces when rectum washed. bath & bed change done.
--- NOTE | 2020-02-03 05:00 | NUR ---
rt here. abgs drawn.
--- NOTE | 2020-02-03 05:00 | NUR ---
blood drawn & sent to lab. xray here. pcxr obtained.
[2020-02-03 05:48] LABS: HEMATOCRIT 35.8 % (37.0-47.0); HEMOGLOBIN 11.6 g/dl (12.0-16.0); IMMATURE GRANULOCYTES 4.5 % (0.0-5.0); MEAN CELL VOLUME 94.7 fL CALC (80.0-100.0); MEAN CORPUSCULAR HGB 30.7 pG CALC (26.0-32.0); MEAN CORPUSCULAR HGB CONC 32.4 g/dL CAL (32.0-36.0); NEUT# 11.11 thou/uL (2.00-7.15); RED BLOOD COUNT 3.78 mill/uL (4.20-5.60); RED CELL DISTRI WIDTH 13.5 % (11.5-15.5)
[2020-02-03 06:21] LABS: CREATININE 1.6 mg/dL (0.5-1.0)
[2020-02-03 06:31] LABS: C-REACTIVE PROTEIN 16.5 mg/dL (0-0.9)
[2020-02-03 06:33] LABS: POTASSIUM 2.7 mmol/l (3.5-5.1)
--- NOTE | 2020-02-03 06:46 | NUR ---
Patient seen this AM for positioning. She is well cared for by nursing. We positoined her on her right side limited by the triple lumen for any further proning. She did receive gentle stretching to the achillies and the extremities as before. Am PAc unchanged, PEEP 15
--- NOTE | 2020-02-03 06:50 | NUR ---
boby notified of lab results. orders rec'd.
--- NOTE | 2020-02-03 10:12 | NUR ---
PT SEEN AT REST IN THE BED WITH AIR MATTRESS, INTUBATED, SEDATED. PT SEEN MOVING AROUND SLIGHTLY AT TIMES. SHE WAS REPOSITIONED IN THE BED BY JANELLE, PT, THIS MORNING. IVF CHANGED TO [id number] PER 2.7 TODAY. K RIDERS RUNNING. PROPOFOL IS AT 30, RAISED TO 35 TO ACHIEVE BETTER SEDATION. PROTONIX DRIP AT 10 ML/HR. OG TUBE WITH SCANT BROWNISH LIQUID OUTPUT. DA SILVA DRAINS CLEAR YELLOW URINE. NO RESTRAINTS NEEDED PT NOT REACHING FOR TUBES. DR LOWE HAS BEEN IN TO SEE PT, PLAN IS TO WEAN DOWN PEEP TO AROUND 12 FROM 15 SO THAT SHE CAN BE SENT TO ANOTHER FACILITY FOR TRACHEOSTOMY. RING REMOVED FROM LEFT 4TH FINGER, YELLOW METAL, PER SWELLING NOTED TO HANDS. THIS WAS PLACED IN A LABELED SPECIMEN CUP AND PLACED IN A PAPER SACK IN CUPBOARD WITH HER NAME WRITTEN ON IT, CONTAINS OTHER PERSONAL EFFECTS.
--- NOTE | 2020-02-03 14:17 | NUR ---
PEEP ON VENT HAS BEEN WEANED DOWNWARD TO 10 AT THIS TIME BY RT. BLOOD PRESSURE DROPPED STEADILY FROM 120-130 TO 80s, SO LEVOPHED WAS RESTARTED AT 4 MCG/MIN FOR THIS, NOW 183/59. WILL MONITOR. PT HAS BEEN TURNED FROM ONE SIDE TO ANOTHER EVERY 2 HOURS. K RIDERS COMPLETE. PROPOFOL AT 25 MKG/KG/MIN, PT REMAINS SEDATED. OXYGEN SATS ARE IN THE UPPER 90s ON THE VENT.
[2020-02-03 15:03] LABS: HEMATOCRIT 36.4 % (37.0-47.0); HEMOGLOBIN 11.6 g/dl (12.0-16.0)
--- NOTE | 2020-02-03 15:37 | NUR ---
PT HAS MAINTAINED ADEQUATE BLOOD PRESSURE NOW WITH LEVOPHED AT 1 MCK/MIN. PROPOFOL UP TO 35, PT APPROPRIATELY SEDATED. O2 SATS LOW TO MID 90s. HR IN THE LOW 60s NOW, UP FROM 48 EARLIER. PEEP SETTINGS BACK AT 12.
--- NOTE | 2020-02-03 17:19 | NUR ---
PT REMAINS STABLE AT THIS TIME, NO DISTRESS, NO UNSTABLE VITAL SIGNS.
--- NOTE | 2020-02-03 19:30 | NUR ---
PATIENT REMAINS ORALLY INTUBATED ON VENTILATOR. SEDATED ON PROPOFOL GTT. RASS -3. VENT SETTINGS TV 450, FIO2 100%, A/C RATE 20, PEEP 12. O2 SAT 93% BREATH SOUNDS ESSENTIALLY CLEAR. SUX ETT AND ORALLY FOR SCANT SECRETIONS. GENERALIZED EDEMA PRESENT. RIGHT FEMORAL TLC INTACT, DSG CDI. PROTONIX GTT INFUSING AT 10 ML/HR, D5 1/2 NS WITH 40 KCL INFUSING AT 125 ML/HR, LEVOPHED INFUSING AT 1 MCG/MIN AND PROPOFOL AT 35 MCG/KG/MIN. CONSTRUCTION PROJECT ADMINISTRATOR SHOWS SB-SR. INCONTINENT OF LIQUID BLACK STOOL. ZEYAD CARE DONE, PARTIAL LINEN CHANGE. TURNED AND REPOSITIONED.
--- NOTE | 2020-02-03 22:00 | NUR ---
INCONTINENT AGAIN OF LIQUID BLACK STOOL. ZEYAD-CARE DONE. DIGNISHIELD PLACED. TURNED AND REPOSITIONED. SR WITH [address] DEGREE AVB ON MONITOR.
--- NOTE | 2020-02-03 23:55 | NUR ---
O2 SAT BETWEEN 87-89% OVER PAST HOUR. SUXX ETT FOR SCANT SECRETIONS. SUX ORALLY FOR MODERATE AMOUNT THIN WHITE SECRETIONS. ORAL CARE PROVIDED. TURNED AND REPOSITIONED ONTO RIGHT SIDE.
[2020-02-04] VITALS (14 sets, daily range): BP systolic 81–147; BP diastolic 44–59
--- NOTE | 2020-02-04 00:10 | NUR ---
PATIENT EVALUATED BY EARNEST/STRATEGIES ANALYST AND PEEP INCREASED TO 15. O2 SAT GRADUALLY INCREASED TO 93%
[2020-02-04 00:17] LABS: HEMATOCRIT 35.1 % (37.0-47.0); HEMOGLOBIN 11.2 g/dl (12.0-16.0)
--- NOTE | 2020-02-04 01:00 | NUR ---
O2 SAT GREATER THAN 95% SINCE PEEP INCREASED EARLIER.
--- NOTE | 2020-02-04 02:05 | NUR ---
SB-SR WITH 1 ST DEGREE AVB ON MONITOR. O2 SAT 97% DA SILVA DRAINS YELLOW URINE AND DIGNISHIELD DRAINAGE BAG HAS SMALL AMOUNT OF DARK GREENISH-BLACK LIQUID STOOL.
--- NOTE | 2020-02-04 04:00 | NUR ---
TURNED AND REPOSITIONED. REMAINS SEDATED ON PROPOFOL AT 45 MCG/KG/MIN. RASS -3. SB-SR WITH 1 ST DEGREE AVB ON MONITOR.
--- NOTE | 2020-02-04 05:45 | NUR ---
REPOSITONED. MORNING ABG'S DONE. TV INCREASED TO 500 ML. PROPOFOL RATE INCREASED TO 55 MCG/KG/MIN FOR RESTLESSENESS.
[2020-02-04 06:15] LABS: HEMATOCRIT 35.6 % (37.0-47.0); HEMOGLOBIN 11.3 g/dl (12.0-16.0)
--- NOTE | 2020-02-04 09:01 | NUR ---
[facility] CALLED TO SAY THAT THEY ARE DECLINING TRANSFER OF THIS PT DUE TO CAPACITY.
--- NOTE | 2020-02-04 09:23 | NUR ---
PT AT REST IN THE BED, INTUBATED, NONRESPONSIVE, STABLE. LEVOPHED AT 1 MCG/MIN, BP SEEN IN THE 110 SYSTOLIC RANGE. DA SILVA AND RECTAL TUBE IN PLACE. PT TURNED Q2H. GENERALIZED EDEMA NOTED, SEEN MOST AROUND NECK.
[2020-02-04 10:26] LABS: HEMATOCRIT 33.8 % (37.0-47.0); HEMOGLOBIN 10.7 g/dl (12.0-16.0); MEAN CELL VOLUME 96.8 fL CALC (80.0-100.0); MEAN CORPUSCULAR HGB 30.7 pG CALC (26.0-32.0); MEAN CORPUSCULAR HGB CONC 31.7 g/dL CAL (32.0-36.0); NEUT# 13.19 thou/uL (2.00-7.15); RED BLOOD COUNT 3.49 mill/uL (4.20-5.60); RED CELL DISTRI WIDTH 14.2 % (11.5-15.5)
[2020-02-04 10:46] LABS: CREATININE 1.3 mg/dL (0.5-1.0)
[2020-02-04 10:47] LABS: POTASSIUM 3.7 mmol/l (3.5-5.1)
[2020-02-04 12:27] LABS: HEMATOCRIT 34.4 % (37.0-47.0); HEMOGLOBIN 10.8 g/dl (12.0-16.0)
--- NOTE | 2020-02-04 14:47 | NUR ---
DAUGHTER REDD UPDATED ON PHONE WHEN SHE CALLED. LASIX 40 MG IV HAS BEEN PROVIDED. PULMOCARE 1 CAN GIVEN THROUGH OG TUBE. PT TURNED FROM SIDE TO SIDE EVERY 2 HOURS. PEEP DOWN TO 12 AT THIS TIME, 98%.
--- NOTE | 2020-02-04 16:18 | NUR ---
PEEP NOW AT 12, PT WITH SATS 99%. PT DOING WELL WITH PULMOCARE FEEDING, NO EVIDENCE OF NAUSEA, NO VOMITING.
--- NOTE | 2020-02-04 17:07 | NUR ---
CONFIRMED WITH NURSING PT APPROPRIATE FOR PT. AT BEDSIDE PROVIDED PASSIVE ROM TO BUE AND BLE'S IN ALL AVAILABLE PLANES OF MOTION. PT DID NOT RESPOND TO NAME OR WITH ROM EXERCISE. PT DID NOT EXHIBIT SIGNS OR SYMPTOMS OF PAIN OR DISTRESS. VSS.
--- NOTE | 2020-02-04 19:15 | NUR ---
vent cont assisted by pt. blanket maker shows sinus rhythm hr 64. rt groin tlc in place d51/2ns w 40kcl infusing @ 125cchr, protonix gtt infusing @ 10cchr, diprovan gtt infusing @ 35cchr, levophed infusing @ 1mcg/min. og feeding tube in place & clamped. arias cath in place. urine cloudy yellow. dignishield in place draining black. requires total care for all needs. fall, air/contact, bilat scds cont. turned & repositioned.
--- NOTE | 2020-02-04 22:00 | NUR ---
vent cont unassisted by pt. pad hand shows sinus rhythm hr 68
[2020-02-05] VITALS (24 sets, daily range): BP systolic 74–136; BP diastolic 32–53
--- NOTE | 2020-02-05 00:01 | NUR ---
turned & repositioned. teletypesetter monitor shows sinus rhythm 1st degree avb hr 72.
[2020-02-05 01:18] LABS: HEMATOCRIT 37.2 % (37.0-47.0); HEMOGLOBIN 11.7 g/dl (12.0-16.0)
--- NOTE | 2020-02-05 02:00 | NUR ---
bp unstable. titrating levo.
--- NOTE | 2020-02-05 04:50 | NUR ---
xray here. pcxr obtained. rt here. abgs drawn.
--- NOTE | 2020-02-05 06:00 | NUR ---
levo titration conts. cardiac cath lab manager shows a fib 1st degree avb hr 76
[2020-02-05 06:26] LABS: HEMOGLOBIN 11.5 g/dl (12.0-16.0); MEAN CELL VOLUME 98.4 fL CALC (80.0-100.0); MEAN CORPUSCULAR HGB 31.4 pG CALC (26.0-32.0); MEAN CORPUSCULAR HGB CONC 31.9 g/dL CAL (32.0-36.0); NEUT# 13.38 thou/uL (2.00-7.15); RED BLOOD COUNT 3.66 mill/uL (4.20-5.60); RED CELL DISTRI WIDTH 14.5 % (11.5-15.5)
[2020-02-05 06:31] LABS: IMMATURE GRANULOCYTES 6.1 % (0.0-5.0)
[2020-02-05 06:48] LABS: ALBUMIN 2.2 g/dL (3.2-5.0); BUN 48 mg/dL (8-23); BUN/CREATININE RATIO 46 (12-20 (CALC)); CARBON DIOXIDE 21 mmol/l (22-30); CHLORIDE 118 mmol/l (95-108); GFR 54 ML/MIN (>=60 (CALC)); GFR FOR AFR.AMER. > 60 ML/MIN (>=60 (CALC)); SGOT/AST 28 u/l (9-36); SODIUM 145 mmol/l (137-146)
[2020-02-05 06:55] LABS: ALKALINE PHOSPHATASE 94 u/l (38-126); ANION GAP 11 (6-22 (CALC)); BILIRUBIN, TOTAL 0.6 mg/dL (0.0-1.4); POTASSIUM 4.6 mmol/l (3.5-5.1)
--- NOTE | 2020-02-05 10:06 | NUR ---
PT INTUBATED, SEDATED, NONRESPONSIVE APPROPRIATELY. LUNGS ARE CLEAR BUT DECREASED THROUGHOUT, SATS SEEN MID TO UPPER 90s. BP SYSTOLIC 80s UPON FIRST CHECK, LEVOPHED UPPED FROM 6 TO 7 MCG/MIN. PT TURNED FROM SUPINE TO LEFT SIDE. DA SILVA AND CHADIELD IN PLACE. OG USED TO PROVIDE ONE CAN OF PULMOCARE THIS MORNING, NO RESIDUAL PRIOR.
--- NOTE | 2020-02-05 13:15 | NUR ---
LEVOPHED NOW AT 8 MCG/MIN PER BP IN THE 80s AND 90s. PEEP 15, SATS 97%.
--- NOTE | 2020-02-05 16:33 | NUR ---
PT BATHED AND LINEN CHANGED, REMAINED SEDATED DURING PROCESS. LEVOPHED UP TO 8 MCG/MIN BEFORE, BP REMAINS 90 SYSTOLIC. PROPOFOL HAS BEEN DECREASED FROM 55 ERALIER TODAY TO 45 NOW TO HELP WITH BP. SKIN APPEARS INTACT.
--- NOTE | 2020-02-05 18:11 | NUR ---
PT DOING WELL WITH PROPOFOL AT 45, ADEQUATE BLOOD PRESSURE AT 100/49. LEVOPHED REMAINS AT 8MCG/MIN. ARMS HAVE BECOME EDEMATOUS, NOW ON PILLOWS. RECTAL TUBE AND DA SILVA BOTH DRAINING DESIGNED.
--- NOTE | 2020-02-05 20:15 | NUR ---
ASSESSMENT COMPLETED. ET TUBE IN PLACE AT 23CM T LIP LINE AND OG TUBE IN PLACE AND CLAMPED. VENT SETTINGS DOCUMENTED IN INTERVENTION; SEE CHART.APERTURE MASK ETCHER IN PLACE AND READING SR AT THIS TIME. B/P 117/50. LEVAPHED INFUSING AT 8MCG/MIN AND DIPROVAN INFUSING @45MCG/KG/MIN; PT. RESTING , NO DISTRESS NOTED. ORAL AND ZEYAD CARE PROVIDED. RECTAL TUBE AND DA SILVA CATHETER IN PLACE AND DRAINING AT GRAVITY LEVEL. RIGHT GROIN TLC INTACT. REPOSITIONED PT. AT THIS TIME. WILL CONTINUE TO MONITOR.
--- NOTE | 2020-02-05 21:20 | NUR ---
OG TUBE IN PLACED AND VERIFIED PLACEMENT BY AUSCILTATION. RESIDUAL HIGH AT 70MLS AND FEED HELD TONIGHT, FLUSHED WITH WATER AND PILLS GIVEN. PT. SET INTO HIGH FOWLERS. NEW BOTTLE OF DIPRIVAN HUNG WITH NEW TUBING. ORAL CARE PROVIDED.
--- NOTE | 2020-02-05 23:50 | NUR ---
REPOSITIONED AND OG TUBE SET UP TO LIS. TEMP 99.0 AND BLANKET REMOVED. VSS. NO DISTRESS NOTED. EXTREMETIES ELEVATED ONTO PILLOWS. ORAL CARE PROVIDED. REPOSITIONED. OG TUBE RECONNECTED TO LIS. WILL CONTINUE TO MONITOR. SPO2 99%; REMAINS ON VENT WITH SAME SETTINGS. CALL LIGHT IS IN REACH.
[2020-02-06] VITALS (36 sets, daily range): BP systolic 98–156; BP diastolic 43–83
--- NOTE | 2020-02-06 02:00 | NUR ---
PT. RESTING IN BED WITH EYES CLOSED; SEDATED; DIPROVAN AND LEVOPHED INFUSING AT SAME RATE; NO TITRATION NEEDED. VENT SETTINGS REMAIN THE SAME; CALL LIGHT IS IN REACH; WILL CONTINUE TO MONITOR.
--- NOTE | 2020-02-06 04:00 | NUR ---
PT. REPOSITIONED IN BED AND DEEP SUCTION PERFORMED WELL ORPHARYNGEAL SUCTION; PT. TOLERATED WELL. RECTAL TUBE REMAINS IN PLACE WELL DA SILVA CATHETER. LOTION APPLIED TO BACK AND BLE. VENT SETTINGS REMAIN THE SAME. DIPROVAN AND LEVOPHED GTT REMAIN AT SAME RATE. ORAL CARE PROVIDED. GENERALIED EDEMA NOTED; BILATERAL HANDS ARE SWOLLEN AND ELEVATED; GOOD RADIAL PULSES. WILL CONITNUE TO MONITOR.
--- NOTE | 2020-02-06 05:22 | NUR ---
BANQUET LINE COOK IN AT BEDSIDE FOR AM PORTABLE.
--- NOTE | 2020-02-06 06:15 | NUR ---
NOTIFIED DR LOWE OF CRITICAL PH OFF ABG THIS AM WELL GENERALIZED EDEMA ESPECIALLY IN THE HANDS; NEW ORDERS RECIEVED AND TO BE CARRIED OUT.
--- NOTE | 2020-02-06 07:21 | NUR ---
REPORT RECEIVED FROM DEBURRING MACHINE OPERATOR, PT REMAINS STABLE ON VENT, WITH DIPROVAN AT 45, LEVOPHED AT 8, JULIANNE HANDS SWOLLEN, DOES NOT AROUSE TO VERBAL STIMULI
--- NOTE | 2020-02-06 07:52 | NUR ---
PEEP DECREASED TO 14.
--- NOTE | 2020-02-06 09:02 | NUR ---
PEEP DECREASED TO 13
--- NOTE | 2020-02-06 10:48 | NUR ---
PT BLOOD PRESSURE IS NORMAL, RESP TECH DECREASING PEEP, BY ONE EVERY HOUR, AT THIS TIME DOWN TO 13. NEW ORDER FOR LASIX IV WAS GIVEN FOR SWELLING OF THE HANDS
--- NOTE | 2020-02-06 11:04 | NUR ---
PEEP DECREASED TO 12
--- NOTE | 2020-02-06 11:45 | NUR ---
DAUGHTER HERE TO SEE PT, WAIVER SIGNED FOR RELEASE OF LIABILTY. DR. LOWE NOTIFIED , AND SAID HE WOULD COME SPEAK WITH DAUGHTER.
--- NOTE | 2020-02-06 12:55 | NUR ---
RESP TECH TO ROOM FOR DEEP SUCTIONING AND TO DECREASE VENT SETTINGS
--- NOTE | 2020-02-06 13:03 | NUR ---
FIO2 DECREASED TO 95%.
--- NOTE | 2020-02-06 13:10 | NUR ---
DR LOWE AT BEDSIDE WITH PTS DAUGHTER SPEAKING TO HER ABOUT PLAN OF CARE.
--- NOTE | 2020-02-06 13:49 | NUR ---
LEENA DECREASED TO ALLOW PT TO BECOME SOMEWHAT AWARE OF SURROUNDINGS PER DR. LOWE.
--- NOTE | 2020-02-06 15:08 | NUR ---
DIPROVAN RATE AT 10, PT STILL DOES NOT AROUSE TO VERBAL STIMULI, LEVOPHED REMAINS AT 10 FOR STABLE BLOOD PRESSURE.
--- NOTE | 2020-02-06 16:32 | NUR ---
DIPROVAN REMAINS AT 10, INCREASED LEVOPHED TO 12 FOR B/P OR 99/48 PT STILL NOT SHOWING ANY SIGNS OF AWARENESS WITH VERBAL STIMULI, PUPILS PINPOINT. NON REACTIVE
--- NOTE | 2020-02-06 17:16 | NUR ---
ET TUBE MOVED TO LEFT @ 23 @ LIP. KINGSLEY AND HME CHANGED.
--- NOTE | 2020-02-06 19:30 | NUR ---
ASSESSMENT COMPLETED. ET TUBE @23CM AT LIP LINE; VENT SETTINGS IN INTERVENTION. SPO2 95-96%. B/P 156/83 WITH LEVOPHED GTT INFUSING @10MCG/MIN AND TITRATED DOWN TO 9MCG/MIN; WILL CONTINUE TO MONITOR.DIPROVAN GTT INFUSING @10MCG/KG/MIN; OG TUBE IN PLACE AND VERIFIED PLACEMENT BY AUSCILTATION. DA SILVA CATHETER AND RECTAL TUBE INTACT AND DRAINING AT GRAVITY LEVEL. ZEYAD CARE GIVEN WELL ORAL CARE. COOL WSH CLOTH APPLIED TO FOREHEAD FOR TEMP OF 99.6; WILL REASSESS AND BLANKET REMOVED. REPOSITIONED IN BED. PT. IS ON AIR MATTRESS. WILL CONTINUE TO MONITOR.
--- NOTE | 2020-02-06 20:30 | NUR ---
LEVOPHED GTT TITRATED DOWN TO 8MCG/MIN B/P NOW 130/56; TEMP 99.3; WILL CONTINUE TO MONITOR.
--- NOTE | 2020-02-06 21:30 | NUR ---
LEVOPHED GTT TITRATED DOWN TO 7MCG/MIN; B/P 118/52; WILL CONTINUE TO MONITOR. TEMP 99.2.
--- NOTE | 2020-02-06 23:15 | NUR ---
PT. GIVEN A CBB AND LINENS CHANGED; REPOSITIONED AT THIS TIME AND BUE ELEVATED ONTO PILLOWS. LOTION APPLIED. GTTS REMAIN AT SAME RATE; PT. REMAINS SEDATED. ORAL CARE PROVIDED. CALL LIGHT IS IN REACH.
[2020-02-07] VITALS (64 sets, daily range): BP systolic 94–166; BP diastolic 42–79
--- NOTE | 2020-02-07 00:35 | NUR ---
PT. WITH GURGLE SOUNDS AND DEEP SUCTIONING PERFORMED WELL OROPHARYNGEAL SUCTIONING. STILL HAS SOUNDS OF GURGLES; RT CALLED AND AT BEDSIDE AND ADJUSTED AIR IN [place] TO ET TUBE WELL DEEP SUCTIONING PERFORMED BY RT. PT. PULLED UP IN BED INTO HIGH FOWLERS POSITION. SPO2 96%. B/P AT 166/6AND LEVOPHED GTT TITRATED DOWN TO 6MCG/MIN; WILL CONTINUE TO MONITOR.
--- NOTE | 2020-02-07 01:30 | NUR ---
LEVOPHED GTT TITRATED DOWN TO 5MCG/MIN; B/P 139/56; WILL CONTINUE TO MONITOR. PT. REMAINS SEDATED; NO DISTRESS NOTED; VENT SETTINGS PER RT; SEE INTERVENTION.
--- NOTE | 2020-02-07 02:15 | NUR ---
B/P 141/58; LEVOPHED GTT TITRATED DOWN TO 4MCG/MIN; WILL CONTINUE TO MONITOR.
--- NOTE | 2020-02-07 03:20 | NUR ---
PT. REPOSITIONED ONTO RIGHT SIDE AND RECTAL TUBE REMAINS IN PLACE. ORAL CARE PROVIDED. B/P WNL. CONTINUOUS PLASTICS SEASONER OPERATOR REMAINS IN PLACE. ORAL CARE PROVIDED. CALL LIGHT IS IN REACH. ALL EXTREMETIES ELEVATED ONTO PILLOW.
--- NOTE | 2020-02-07 05:21 | NUR ---
PT. RESTING IN BED AND REMAINS SEDATED WITH DIPROVAN GTT AND LEVOPHED GTT INFUSING; SAME RATE AND SAME VENT SETTINGS.NO DISTRESS NOTED.
--- NOTE | 2020-02-07 06:10 | NUR ---
ASSISTED SILVERER TO REPOSITION PT. FOR PORTBALE CXRAY THIS AM.
--- NOTE | 2020-02-07 07:00 | NUR ---
REPORT RECEIVED FROM FINA TRIANA. PT RESTING ON AIRMATTRESS POSITIONED WITH PILLOWS; EYES CLOSED WITH NO SIGNS OF DISTRESS. ON VENTILATOR; ASSIST CONTROLLED WITH SETTINGS OF 20/500/95%/12. SEDATED WITH DIPRIVAN INFUSING AT 10 MCG/KG/MIN, LEVOPHED 4 MCG/MIN, AND D5 1/2NS AT 10 ML/HR. ALL INFUSING INTO RIGHT FEMORAL TLC; DRESSING CDI. OG TUBE CONNECTED TO LIS WITH DARK BROWN GASTRIC CONTENT; 100 ML EMPTIED AT THIS TIME. DA SILVA 16F DRAINING CLEAR YELLOW URINE IN ADEQUATE AMOUNTS. RECTAL TUBE DRAINING LOOSE TO WATERY DARK BROWN STOOL. SCDS INTACT TO BLE. ON AIRBORNE/CONTACT PRECAUTIONS FOR POSITIVE COVID. LUNGS ARE COURSE WITH WHEEZING; HYPOACTIVE BS; GENERLIZED DEPENDENT EDEMA. SAFETY MEASURES IN PLACE. NEEDS ARE ANTICIPATED BY STAFF.
--- NOTE | 2020-02-07 07:50 | NUR ---
PULMOCARE BOLUS FEED GIVEN VIA OG TUBE; PT RESPOSITIONED INTO HIGH FOWLERS AND TUBE PLACEMENT VERIFIED WITH AUSCULTATION OF AIR ADMINISTRATION PRIOR TO FEED. CURRENTLY CLAMPED FROM SUCTION.
--- NOTE | 2020-02-07 08:00 | NUR ---
DR. ROUSE AND FIDEL KOCH AT BEDSIDE FOR EVAL. LEVOPHED TITRATED DOWN TO 3 MCG/MIN. NEW ORDERS TO DECREASE LOVENOX DOSAGE AND REEVALUATE ANTIBIOTIC THERPAY.
--- NOTE | 2020-02-07 08:09 | NUR ---
RT AT BEDSIDE; TIDAL VOLUME DECREASED FROM 500 TO 450.
--- NOTE | 2020-02-07 08:30 | NUR ---
SPOKE WITH EROS FROM [facility] REGARDING TRANSFER REQUEST. FACESHEET FAXED.
--- NOTE | 2020-02-07 08:50 | NUR ---
LEVOPHED TITRATED DOWN TO 2 MCG/MIN; BLOOD PRESSURE 148/67 HR 93. AM MEDICATION ADMINISTERED.
--- NOTE | 2020-02-07 09:00 | NUR ---
[facility] DECLINED TRANSFER; DR. ROUSE AWARE.
--- NOTE | 2020-02-07 09:58 | NUR ---
LEVOPHED DISCONTINUED; BP 156/60 HR 90.
--- NOTE | 2020-02-07 10:59 | NUR ---
OG TUBE RECONNECTED TO LIS AND PT REPOSITIONED ONTO RIGHT SIDE WITH PILLOWS; HOB ELEVATED AT 30 DEGREES. RASS SCORE OF -3; PT DOES NOT OPEN HER EYES BUT DOES SUBTLY SHAKE HEAD TO SOME YES/NO QUESTIONS. SHAKES HEAD SIDE TO SIDE WHEN ASKED IF SHE IS HAVING PAIN. PT UPDATED ON DATE, TIME, AND POC. RT NOW AT BEDSIDE.
--- NOTE | 2020-02-07 11:22 | NUR ---
ON PHONE TO DISCUSS PT FOR PULMONARY CONSULT; UPDATED ON PATIENT CONDITION.
--- NOTE | 2020-02-07 11:34 | NUR ---
AT 1100 RT ADJUSTED VENT SETTINGS TO SIMV RATE OF 18, FIO2 95%, PEEP OF 10. PT BREATHING AT A RATE OF 27-28 BREATHS PER MINUTE; SPO2 90-91%. OTHER VSS SINCE DC OF LEVOPHED AT 1000. WILL CONTINUE TO MONITOR.
--- NOTE | 2020-02-07 11:36 | NUR ---
PT PLACED IN SIMV MODE FOR COMFORT. RN EROS AWARE. WILL MONITOR.
--- NOTE | 2020-02-07 13:01 | NUR ---
DAUGTHER AT BEDSIDE. PT TURNED SIDE TO SIDE FOR HYGIENE, RECTAL TUBE AND DA SILVA CARE PROVIDED. POSITIONED INTO HIGH FOWLERS FOR TUBE FEED. ORAL SUCTIONED FOR MODERATE AMOUNT OF CLEAR THICK SPUTUM. AFEBRILE. ACCU CHECK 138. SPO2 DECREASED TO 82% AND RR 33 AFTER ACTIVITY; RT INCREASED PEEP TO 12 FOR NOW.
--- NOTE | 2020-02-07 14:45 | NUR ---
PT REPOSITIIONED ONTO LEFT SIDE AND HOB ELEVATED.
--- NOTE | 2020-02-07 15:27 | NUR ---
PHYSCIAL THERPAY AT BEDSIDE.
--- NOTE | 2020-02-07 15:31 | NUR ---
SPO2 DECREASED FURTHER DURING REPOSITIONING BY PT; VENTILATOR CHANGED BACK INTO ASSIST CONTROL SETTINGS AND PROPOFOL TITRATED UP TO 20 MG/KG/MIN.
--- NOTE | 2020-02-07 16:01 | NUR ---
PROPOFOL DRIP CAUSING HYPOTENSION; LEVOPHED DRIP RESTARTED AT 4 MCG/MIN.
--- NOTE | 2020-02-07 16:24 | NUR ---
BLOOD PRESSURE IS STABLE WITH LEVOPHED INFUSING AT 4 MCG/MIN AND PROPOFOL AT 20 MCG/KG/MIN. VENT SETTINGS ARE CURRENTLY 16/450/95%/12 AND PT IS BREATHING 22-23 TIMES PER MINUTE.
--- NOTE | 2020-02-07 18:00 | NUR ---
RECTAL TUBE BAG REPLACED; TOTAL OF 800ML OF WATERY BLACK STOOLS DISGARDED. ZEYAD CARE PROVIDED TO PT DUE TO CREAMY WHITE VAGINAL DISCHARGE; NO FOUL ODOR NOTED. REPOSITIONED INTO HIGH FOWLERS FOR DINNER BOLUS FEED. NO CHANGES TO DRIPS OR VENT SETTINGS. SAFETY MEASURES IN PLACE; PT VISUALIZED FROM NURSES DESK. NEEDS ARE ANTICIPATED BY STAFF.
--- NOTE | 2020-02-07 19:15 | NUR ---
vent cont assisted by pt. environmental monitoring specialist shows sinus rhythm 1st degree avb hr 88. rt groin tlc in place. d51/2ns infusing @ 10cchr, levo infusing @ 4mcg/min, propofol infusing @ 20mcg/kg/min. og in place & clamped. arias cath in place urine cloudy yellow. dignishield in place & draining black liquid. bilat scds, air mattress, air/contact precautions cont. turned & repositioned. requires total care for all needs.
--- NOTE | 2020-02-07 22:00 | NUR ---
vent cont assisted by ptElke soria. gen edema conts. turned & repositioned.
[2020-02-08] VITALS (35 sets, daily range): BP systolic 84–158; BP diastolic 39–74
--- NOTE | 2020-02-08 00:01 | NUR ---
vent cont assisted by ptElke arias draining well. monitor worker shows sinus rhythm 1st degree avb pacs hr 88.
--- NOTE | 2020-02-08 02:00 | NUR ---
vent cont assisted by ptElke soria. ivf infusing well.
--- NOTE | 2020-02-08 05:00 | NUR ---
am care given x2. linen changed.
--- NOTE | 2020-02-08 06:00 | NUR ---
xray here. pcxr obtained. rt here. abgs drawn.
[2020-02-08 06:34] LABS: HEMATOCRIT 33.5 % (37.0-47.0); HEMOGLOBIN 10.6 g/dl (12.0-16.0); IMMATURE GRANULOCYTES 3.4 % (0.0-5.0); MEAN CELL VOLUME 95.4 fL CALC (80.0-100.0); MEAN CORPUSCULAR HGB 30.2 pG CALC (26.0-32.0); MEAN CORPUSCULAR HGB CONC 31.6 g/dL CAL (32.0-36.0); NEUT# 12.07 thou/uL (2.00-7.15); RED BLOOD COUNT 3.51 mill/uL (4.20-5.60); RED CELL DISTRI WIDTH 14.9 % (11.5-15.5)
--- NOTE | 2020-02-08 07:37 | NUR ---
REPORT RECEIVED FROM NEELAM LYNNE. PT RESTING ON AIRMATTRESS POSITIONED WITH PILLOWS; EYES CLOSED WITH NO SIGNS OF DISTRESS. ON VENTILATOR; ASSIST CONTROLLED WITH SETTINGS OF 16/450/95%/12. SEDATED WITH DIPRIVAN INFUSING AT 20 MCG/KG/MIN, LEVOPHED 4 MCG/MIN, AND D5 1/2NS AT 10 ML/HR. ALL INFUSING INTO RIGHT FEMORAL TLC; DRESSING CDI. OG TUBE CONNECTED TO LIS. DA SILVA 16F DRAINING CLOUDY YELLOW URINE IN ADEQUATE AMOUNTS. RECTAL TUBE DRAINING WATERY DARK BROWN STOOL IN SMALL AMOUNTS. SCDS INTACT TO BLE. ON AIRBORNE/CONTACT PRECAUTIONS FOR POSITIVE COVID. LUNGS ARE COURSE WITH WHEEZING; HYPOACTIVE BS; GENERLIZED DEPENDENT EDEMA. SAFETY MEASURES IN PLACE. NEEDS ARE ANTICIPATED BY STAFF.
[2020-02-08 07:43] LABS: C-REACTIVE PROTEIN 25.2 mg/dL (0-0.9)
[2020-02-08 08:23] LABS: ALBUMIN 2.2 g/dL (3.2-5.0); BILIRUBIN, TOTAL 0.6 mg/dL (0.0-1.4); CREATININE 1.2 mg/dL (0.5-1.0); TOTAL PROTEIN 5.2 g/dL (6.3-8.2)
[2020-02-08 08:25] LABS: POTASSIUM 3.3 mmol/l (3.5-5.1)
--- NOTE | 2020-02-08 08:30 | NUR ---
DR. ROUSE AND FIDEL KOCH AT BEDSIDE FOR EVAL. LEVOPHED TITRATED DOWN TO 3 MCG/MIN.
--- NOTE | 2020-02-08 09:11 | NUR ---
OG TUBE PLACEMENT VERIFIED WITH ADMINISTRATION OF AIR PRIOR TO GIVING AM MEDICATION AND PULMOCARE BOLUS. PT RESTING IN HIGH FOWLERS.
--- NOTE | 2020-02-08 10:23 | NUR ---
DR. OTERO ECOMMENDED SPEAKING WITH DR. RODRIGUEZ REGUARDING PT PIP. DR. RICHARDS ORDERED PEEP TO BE DECREASED TO 13 AND MONITORED. INCREASE TO MAX OF 18 OVER NEXT [address] RODRIGUEZ RECOMENDS XRAY BE REVIEWED TO RULE OUT EFFUSION BY ATTENDING PHYSICIAN. PT IS NOW ON ORDERED SETTINGS 18/400/13/95%. WILL CONTINUE TO MONITOR. RN EROS AT BEDSIDE AND AWARE.
--- NOTE | 2020-02-08 10:42 | NUR ---
RT AT BEDSIDE; NURSE AND RT SPOKE WITH DR. RODRIGUEZ WHO ORDERED FOR PEEP TO BE SET AT 13 FOR THE NEXT FEW HOURS AND THEN SLOWLY INCREASED UP TO 18 OVER THE NEXT 24 HOURS. FIDEL KOCH UPDATED ON ORDERS FROM DEHYDROGENATION SUPERVISOR AND ORDERED ULTRASOUND OF CHEST PER DR. RODRIGUEZ RECOMMENDATION. RATE CURRENTLY AT 18 TV 400 AND FIO2 95%.
--- NOTE | 2020-02-08 10:50 | NUR ---
PT TOLLERATING PEEP OF 13 AT THIS TIME. SPO2 92% PIP 32 WILL CONTINUE TO MONITOR.
--- NOTE | 2020-02-08 11:19 | NUR ---
02/07/20 PT not Attempted position change. She did not tolerate left sidelying and RT and I worked to reposition. She did receive PROM all extremities. She desaturated to the 70s with position change and we therefore left her supine in semi folwlers for proper sat level on current vent settings Am Pac unchanged
--- NOTE | 2020-02-08 12:15 | NUR ---
LABS OBTAINED BY ICU STAFF AND SENT TO LAB. TRIPLE LUMEN CATHETER FLUSHES, BUT DOES NOT RETURN BLOOD.
--- NOTE | 2020-02-08 12:53 | NUR ---
DAUGHTER AT BEDSIDE. UPDATED ON CONDITION. CHART FAXED TO [facility] AND DECLINED DUE TO RISK OF TRANSPORT WITH ELEVATED VENT SETTINGS.
--- NOTE | 2020-02-08 13:10 | NUR ---
400 ML OF UNDIGESTED PULMOCARE IN OG CANISTER; PT WAS RECONNECTED TO SUCTION 2HRS AND 15 MINUTES AFTER FEEDING. LUNCH BOLUS GIVEN AT THIS TIME; WILL LEAVE OG TUBE CLAMPED FOR NOW FOR DIGESTION. POTASSIUM INFUSING.
--- NOTE | 2020-02-08 14:03 | NUR ---
ROBINA STILL AT BEDSIDE. CURRENT VENT SETTINGS ARE RATE OF 18, TV 400, FIO2 95%, AND PEEP OF 13.
--- NOTE | 2020-02-08 14:16 | NUR ---
PHYSICAL THERAPY AT BEDSIDE.
--- NOTE | 2020-02-08 14:27 | NUR ---
PROCALCITONIN 1.400; CRITICAL LAB CALLED TO DR. ROUSE WITH NO NEW ORDERS AT THIS TIME.
--- NOTE | 2020-02-08 15:16 | NUR ---
CALLED TO ICU TO EVLAUATE PT FOR PRONING. DIRECTOR PAPITO AND RN EROS NAIRMINED IT UNSAFE AT THIE TIME DID PHYSICAL THERAPY. PT WILL BE REASSESED IN THE AM.
--- NOTE | 2020-02-08 16:48 | NUR ---
LEVOPHED TITRATED UP TO 4 MCG/MIN; HYPOTENSIVE AFTER INCREASE IN PEEP ON VENT.
--- NOTE | 2020-02-08 18:00 | NUR ---
OG TUBE PLACEMENT VERIFIED WITH ASPIRATION OF GASTRIC CONTENT; 35ML OF RESIDUAL ASPIRATED AND REINSERTED PRIOR TO PULMOCARE TUBE FEED. PT RESTING IN HIGH FOWLERS WITH EXTREMITIES ELEVATED. NO SIGNS OF DISTRESS; RASS SCORE OF -3. SAFETY MEASURES IN PLACE; NEEDS ARE ANTICIPATED BY STAFF.
--- NOTE | 2020-02-08 19:30 | NUR ---
vent cont assisted by pt. cloth painter shows sinus rhythm 1st degree avb pacs hr 86. og in place & clamped. rt fem tlc in place. d51/2ns infusing @ 10cchr, levo infusing @ 4mcg/kg/min, diprovan infusing @ 4mcg/min. arias cath in place. urine cloudy yellow. bilat scds, air mattress, fall & air/contact precautions cont. turned & repositioned. requires total assist with all needs.
--- NOTE | 2020-02-08 22:00 | NUR ---
vent cont assisted by pt. soria. cardiac/vascular sonographer shows sinus rhythm 1st degree avb hr 84.
[2020-02-09] VITALS (16 sets, daily range): BP systolic 88–144; BP diastolic 35–61
--- NOTE | 2020-02-09 00:01 | NUR ---
vent cont unassisted by pt. resps guppy-like. arias draining well.
--- NOTE | 2020-02-09 02:00 | NUR ---
vent cont unassisted by pt. arias draining well. turned & repositioned.
--- NOTE | 2020-02-09 05:00 | NUR ---
bath & linen change x2 assists.
--- NOTE | 2020-02-09 05:45 | NUR ---
rt here. fabrizio deleon. xray here. pcxr obtained.
[2020-02-09 05:55] LABS: HEMATOCRIT 33.5 % (37.0-47.0); HEMOGLOBIN 10.4 g/dl (12.0-16.0); MEAN CELL VOLUME 98.2 fL CALC (80.0-100.0); MEAN CORPUSCULAR HGB 30.5 pG CALC (26.0-32.0); RED BLOOD COUNT 3.41 mill/uL (4.20-5.60); RED CELL DISTRI WIDTH 15.1 % (11.5-15.5)
[2020-02-09 06:10] LABS: ALBUMIN 2.3 g/dL (3.2-5.0); BILIRUBIN, TOTAL 0.6 mg/dL (0.0-1.4); CREATININE 1.2 mg/dL (0.5-1.0); TOTAL PROTEIN 5.4 g/dL (6.3-8.2)
[2020-02-09 06:21] LABS: POTASSIUM 4.3 mmol/l (3.5-5.1)
--- NOTE | 2020-02-09 07:01 | NUR ---
02/08/20 Attempted proning with the patient and nurse assist. A loarge amount of stomach contents were suctioned prior to positioning. We deferred positioining given she was at risk for aspiration and also her response fromthe previous day was not good. We did perform ROM all extremities. I spoke to the patient attempting to get a response. She did not respond . Am Pac 6 indicating she would do well in [facility]
--- NOTE | 2020-02-09 07:11 | NUR ---
PT REPORT RECEIVED, PT REMAINS ON VENT, WITH DIPROVAN, D51/2 NS, AND LEVOPHED INFUSING PER ORDER.
--- NOTE | 2020-02-09 09:11 | NUR ---
COUNTER MAKER HERE FOR BEDSIDE US OF CHEST. SAT PT UP IN BED FOR BACK VIEW AND FRONT VIEW. RESP TECH REMAINS AT BEDSIDE ADJUSTING VENT SETTINGS.
--- NOTE | 2020-02-09 11:15 | NUR ---
SATS DROPPED TO 88% ON VENT WITH LATEST SETTINGS PER RESP TECH, PEEP AT 18, CALLED RESP. RESP AT THIS TIME IS OBTAINING ABG AND WILL ADJUST VENT SETTINGS PER RESULTS.
--- NOTE | 2020-02-09 11:32 | NUR ---
PLACED PT ON LEFT SIDE WHICH SEEMS TO INCREASE PTS SATS. PTS BLOOD PRESSURE HAS DROPPED SO INCREASED LEVOPHED TO 7 88/38
--- NOTE | 2020-02-09 13:34 | NUR ---
CHANGED FIO2 TO 90%
--- NOTE | 2020-02-09 13:55 | NUR ---
RESPIRATORY REMAINS ADJUSTING SETTINGS FOR VENT
--- NOTE | 2020-02-09 17:27 | NUR ---
SON IN TO SEE PT. CONSENT SIGNED FOR WAIVER OF RELEASE. RESP TECH STILL ADJUSTING SETTINGS ON VENT
--- NOTE | 2020-02-09 18:19 | NUR ---
PT REMAINS ON LEFT SIDE, WITH DIPROVAN AT 25 MCQ, LEVOPHED AT 8 MCQ FOR B/P OF 140/62 D 51/2 AT 10 ML HR. RESPT TECH AT BEDSIDE.
--- NOTE | 2020-02-09 19:45 | NUR ---
PATIENT REMAINS ORALLY INTUBATED ON VENTILATOR. O2 SAT 82-86% BREATH SOUNDS COARSE THROUGHOUT. OGT IN PLACE TO LIS. ABD SOFTLY DISTENDED WITH BOWEL SOUNDS PRESENT. DA SILVA DRAINING CLOUDY YELLOW URINE. RECTAL TUBE DRAINING DARK BROWN STOOL. GENERALIZED EDEMA PRESENT. HANDS GROSSLY EDEMATOUS. ARMS ELEVATED ON PILLOWS. RIGHT FEMORAL TLC IN PLACE WITH D51/2 NS INFUSING AT 10 ML/HR, LEVOPHED GTT INFUSING AT 8 MCG/MIN AND PROPOFOL GTT AT 25 MCG/KG/MIN. SCD'S ON BILATERALLY. TURNED AND REPOSITIONED IN SEMI-FOWLERS POSITON. PAITENT IS ON AIR MATTRESS. AIR SCRUBBER IN ROOM. SLAT BASKET MAKER HELPER MACHINE SHOWS SR WITH 1ST DEGREE AVB AND OCC PAC'S.
--- NOTE | 2020-02-09 22:00 | NUR ---
TURNED AND REPOSITIONED ONTO RIGHT SIDE. VSS.
--- NOTE | 2020-02-09 22:20 | NUR ---
PATIENT O2 SAT DROPPED TO MID 70'S WHILE ON RIGHT SIDE. RETURNED TO SUPINE POSITION WITH HOB UP 30 DEGREES. O2 SAT GRADUALLY RETURNED TO MID 80'S. CALL TO RT TO EVALUATE PATIENT.
--- NOTE | 2020-02-09 23:05 | NUR ---
VENT SETTINGS CHANGES PER WADNER/RT, FIO2 INCREASED TO 100% AND PEEP TO 15. O2 SAT INCREASED TO 96%
[2020-02-10] VITALS (30 sets, daily range): BP systolic 54–141; BP diastolic 24–59
--- NOTE | 2020-02-10 | NUR ---
O2 SAT 96-99% SINCE VENT SETTING CHANGES MADE EARLIER.
--- NOTE | 2020-02-10 00:30 | NUR ---
LEVOPHED TITRATED UP FOR BP 80 SYSTOLIC. PROPOFOL TITRATED DOWN TO 20 MCG/MIN.
--- NOTE | 2020-02-10 02:00 | NUR ---
VENT SETTINGS UNCHANGED MONITOR SR WITH 1 [address] DEGREE AVB.
--- NOTE | 2020-02-10 05:25 | NUR ---
MORNING ABG'S DRAWN BY SEAN/RT. PORTABLE CHEST XRAY DONE.
--- NOTE | 2020-02-10 07:31 | NUR ---
REPORT RECEIVED FROM GENERAL MAINTENANCE TECHNICIAN, PT REMAINS SAME WITH DIPROVAN, LEVOPHED, AND D5 1/2 NS INFUSING THRU CENTRAL LINE. PT REMAINS ON VENT.
--- NOTE | 2020-02-10 08:45 | NUR ---
WILL TRY AND WEAN PT OFF OF DIPROVAN TO EVALUATE PTS LEVEL OF AWARENESS.
--- NOTE | 2020-02-10 09:11 | NUR ---
CALLED [facility] AND THEY WILL RETURN THE CALL SOON POSSIBLE.
--- NOTE | 2020-02-10 10:19 | NUR ---
[facility] CALLED AND STATES WITH THE VENT SETTINGS TOO HIGH, IT WOULD NOT BE A SAFE TRANSFER TO THEIR FACILITY IN [place].
--- NOTE | 2020-02-10 10:21 | NUR ---
PTS VITAL SIGNS FLUCTUATING, BLOOD PRESSURE DECREASED , LEVOPHED INCREASED TO 12 FOR BLOOD PRESSURE OF 86/46, DIPROVAN HAS BEEN SHUT OFF TO EVALUATE PT OFF OF SEDATION, AT THIS TIME NO MOVEMENT. PT DOES NOT OPEN EYES OR MOVE TO ANY VERBAL OR TACTILE STIMULI.
--- NOTE | 2020-02-10 10:30 | NUR ---
HAYDEN FROM [facility] RETURNING CALL, ASKED FOR FACE SHEET, H AND P, AND A RECENT COVID TEST. PLACED ORDER FOR TEST AND SENT TO LAB
--- NOTE | 2020-02-10 10:57 | NUR ---
PT GRIMACED WHEN OBTAINING SPECIMEN FOR PCR FOR COVID
--- NOTE | 2020-02-10 11:12 | NUR ---
Patient once again seen for positioning and PROM. She has less sedation. Her BP is 77/39 Her O2 sat is 93 on vent. I positioned her on her left side as far over as feasible She did not respnd to verbal cues Am Pac is 6
--- NOTE | 2020-02-10 11:17 | NUR ---
FAXED NEGATIVE COVID TEST RESULTS TO [facility]
--- NOTE | 2020-02-10 12:06 | NUR ---
DAUGHTER ROBINA HERE TO SEE MOTHER, CONSENT OF LIABILITY SIGNED PER PROTOCOL, WAS ADVISED REDD THE POA WAS SITTING IN CAR, SPOKE WITH DONELL PEREZ ABOUT ALLOWING BOTH DAUGHTERS INTO SEE PT AT SAME TIME, AND WAS GIVEN THE OKAY FOR THAT. REDD NOTIFIED AND WILL COME UP AUGUST VELA HERE TO SPEAK WITH FAMILY
--- NOTE | 2020-02-10 13:10 | NUR ---
DAUGHTERS REMAIN IN ROOM, NO MOVEMENT FROM PT, NO AWARENESS OF SURROUNDINGS, LEENA STILL REMAINS OFF.
--- NOTE | 2020-02-10 13:52 | NUR ---
PT HAS BEEN OFF OF DIPROVAN FOR APPOX 5 HOURS, STILL NOT RESPONDING TO ANY VERBAL OR TACTILE STIMULI
--- NOTE | 2020-02-10 14:53 | NUR ---
DEEPSUCTIONED VENT AND MOUTH FOR ORAL CARE. PT REMAINS OFF OF DIPROVAN WITH NO MOVEMENT OR AWARENESS OF SURROUNDINGS OR TACTILE/VERBAL STIMULI
--- NOTE | 2020-02-10 16:17 | NUR ---
NO MOVEMENT OR AWARENESS WITH VERBAL OR TACTILE STIMULI. VITAL SIGNS REMAIN STABLE. DIPROVAN REMAINS STOPPED, LEVOPHED AT 10 FOR BLOOD PRESSURE OF94/46
--- NOTE | 2020-02-10 17:36 | NUR ---
PT HAS SOME GUPPY GASPING LIKE BREATHS IN BETWEEN RESP BY VENT OFF AND ON.
--- NOTE | 2020-02-10 17:54 | NUR ---
BROTHERS ARE HERE TO SEE MOTHER.
--- NOTE | 2020-02-10 19:10 | NUR ---
PATIENT LAYS WITH HOB 30 DEGREES. IS OFF OF PROPOFOL, IS NOT RESPONSIVE TO PAINFUL OR VERBAL STIMULI. NURSE ASSESSMENT PERFORMED. R-GROIN TRIPLE LUMEN IS INTACT, FLUSHES PROPERLY, NO BLOOD RETURN FROM 3 LUMENS. ON LEVOPHED AT 18 MCG/MIN, ON D 5 1/2 NS AT 10 ML/HR. DA SILVA CATHETER INTACT, DRAINS SKY/CLOUDY URINE. RECTAL TUBE INTACT, DRAINS DARK BROWN LIQUIDY STOOL. OF TUBE TUBE INTACT, ON HIGH INTERMITTENT SUCTION, DRAINS DARK GREEN. VENT ON PRESSURE CONTROL RATE 28, PEEP 18, FIO2 100%, O2 SAT 97%-99%. HEELS ELEVATAED, SCD'S TAKEN OFF FOR ASSESSEMNT, NOW BACK ON. WILL CONTINUE TO MONITOR.
--- NOTE | 2020-02-10 20:15 | NUR ---
SUCTIONED MOUTH AND ET TUBE, PATIENT HAS WHITE CLOUDY PHLEGM FROM NOSE, WAS CLEANED. PATIENT REPOSITIONED. NO RESPONSE TO VERBAL OR PAINFUL STIMULI. PATIENT WAS ALSO PULLED UP AND HOB GREATER THAN 30 DEGREES TO GIVE TYLENOL THROUGH OG TUBE, FLUSHED WELL. HIGH INTERMITTENT SUCTIONED TURNED OFF FOR NOW. HOB REMAINS ELEVATED.
--- NOTE | 2020-02-10 21:53 | NUR ---
MOUTH SUCTIONED DUE TO LARGE AMOUNT OF PHLEGM.
--- NOTE | 2020-02-10 22:46 | NUR ---
RT WAS CALLED FOR VENT CHECK. RT FLUSHED THE ET AND SUCTIONED. MEDICATIONS GIVEN THROUGH OG, PLACEMENT WAS VERIFIED VIA AUSCULTATION, HOB 30 DEGREES. PATIENT WAS REPOSITIONED, MOUTH SUCTIONED, HEELS ELEVATED.
[2020-02-11] VITALS (38 sets, daily range): BP systolic 74–178; BP diastolic 31–71
--- NOTE | 2020-02-11 02:15 | NUR ---
PATIENT MOUTH AND ET SUCTIONED. NO PHLEGM FROM NOSE NOTED. SMALL AMOUNT OF ORAL SALIVA NOTED. VENT SETTINGS UNCHANGED, O2 SAT 99%-100%. MOUTH CARE PROVIDED, MOUTH MOISTURIZER APPLIED TO LIPS. BILATERAL ARMS AND HANDS HAVE BECOME MORE EDEMETOUS, ARMS/HANDS ELEVATED THROUGH THE SHIFT. PT REPOSITIONED. HEELS CONTINUE TO BE ELEVATED. NO RESPONSE FROM PAINFUL OR VERBAL STIMULI. WILL CONTINUE TO ONITOR.
--- NOTE | 2020-02-11 04:40 | NUR ---
ORAL AND ET SUCTIONING PROVIDED. REPOSITONED. HEELS ELEVATED. ARMS ELEVATED. MOUTH CARE PROVIDED.
--- NOTE | 2020-02-11 05:12 | NUR ---
RT IN ROOM TO RE-EVAULATE VENT SETTING AND CONTROL.
--- NOTE | 2020-02-11 05:28 | NUR ---
RT CHANGED VENT SETTINGS TO : VOLUME CONTROL, TIDAL VOLUME 450, PEEP 14, RATE 28, FIO2 100%.
[2020-02-11 05:38] LABS: ANION GAP 5 (6-22 (CALC)); BILIRUBIN, TOTAL 0.7 mg/dL (0.0-1.4); BUN 54 mg/dL (8-23); BUN/CREATININE RATIO 27 (12-20 (CALC)); CARBON DIOXIDE 23 mmol/l (22-30); CHLORIDE 118 mmol/l (95-108); GFR 24 ML/MIN (>=60 (CALC)); GFR FOR AFR.AMER. 29 ML/MIN (>=60 (CALC)); POTASSIUM 4.9 mmol/l (3.5-5.1); SGOT/AST 14 u/l (9-36); SODIUM 142 mmol/l (137-146)
[2020-02-11 05:51] LABS: ALBUMIN < 1.0 g/dL (3.2-5.0); ALKALINE PHOSPHATASE 25 u/l (38-126); TOTAL PROTEIN < 2.0 g/dL (6.3-8.2)
--- NOTE | 2020-02-11 06:10 | NUR ---
ASSITED ZIPPER SLIDE ATTACHER WITH PORTABLE CXR OF PATIENT. PT LAYED SUPINE WITH HOB 30 DEGREES.
--- NOTE | 2020-02-11 06:17 | NUR ---
UPDATED AUGUST VELA APRN REGARDING VENT CHANGES THIS MORNING, KIDNEY FUNTION LEVELS THIS MORNING AND RT HAD NOTIFIED DR ROUSE THIS MORNING ALREADY.
--- NOTE | 2020-02-11 06:26 | NUR ---
RT IN ROOM TO OBTAIN NEW ABG FOR RE ASSESSMENT AFTER VENT SETTING CHANGES.
--- NOTE | 2020-02-11 06:31 | NUR ---
WAS ABLE TO OBTAIN BLOOD FOR A CBC THIS MORNING.
[2020-02-11 06:35] LABS: HEMATOCRIT 29.6 % (37.0-47.0); MEAN CELL VOLUME 99.3 fL CALC (80.0-100.0); MEAN CORPUSCULAR HGB 30.2 pG CALC (26.0-32.0); MEAN CORPUSCULAR HGB CONC 30.4 g/dL CAL (32.0-36.0); RED BLOOD COUNT 2.98 mill/uL (4.20-5.60); RED CELL DISTRI WIDTH 15.2 % (11.5-15.5)
--- NOTE | 2020-02-11 07:20 | NUR ---
pt intubated; no apparent distress noted; assessment completed at this time; pt unresponsive to verbal and tactile stimuli; non-purposeful movements noted; pupils reactive; resp even and unlabored; lungs clear/ diminished bases/ ins wheeze noted to left upper ant lung; skin color wnl; vent intact and maintained with settings per RT Alexandro; hr reg; strong pulses; generalized edema noted; st on monitor; abd soft with bs hypoactive; og tube intact to suction with brown gastric output; rectal tube intact with brown loose stool noted; arias to gravity draining sediment yellow urine; cath strap intact; TLC patent to right femerol; all lumens flushed and patent; no blood return noted; levophed gtt at 18 mcg/min; ivf as per orders; all extremeties elevated on pillows; repositioned; oral care; will continue to monitor
--- NOTE | 2020-02-11 08:01 | NUR ---
remains intubated/ vent maintained; st on monitor; iv patent; levophed gtt at 18 mcg/min; arias to gravity; scds intact; will continue to monitor
[2020-02-11 09:31] LABS: HEMATOCRIT 28.4 % (37.0-47.0); HEMOGLOBIN 8.6 g/dl (12.0-16.0)
--- NOTE | 2020-02-11 10:00 | NUR ---
intubated; remains off sedation; levophed gtt at 18 mcg/min; st on monitor; arias to gravity; rectal tube to gravity; repositioned; does not arouse with verbal or tactile stimuli; freq body movements noted; will continue to monitor
--- NOTE | 2020-02-11 10:45 | NUR ---
repositioned to left side; hob elevated; oral care with suctioning; air mattress intact; no breakdown noted to coccyx however, light brown crusting noted around anus/rectum; rectal tube intact; RT at bedside for ETT suctioning; sr on monitor; arias to gravity; will continue to monitor
--- NOTE | 2020-02-11 11:44 | NUR ---
daughter present at bedside
--- NOTE | 2020-02-11 12:02 | NUR ---
Dr Orozco called per blurb writer; informed of family desire to speak with
--- NOTE | 2020-02-11 12:23 | NUR ---
Dr Orozco and Ventura Kirby APRN present on unit; family pulled to private room; MD speaking with daughters Ange and Debi at this time
--- NOTE | 2020-02-11 13:22 | NUR ---
pt repositioned to right side; extremities elevated; arias/rectal tube to gravity; oral care wioth toothette; DNR signed per daughter Debi Rao; family departed; will continue to monitor
--- NOTE | 2020-02-11 13:41 | NUR ---
RT notified of o2 sat low 90%; FiO2 titrated per RT
--- NOTE | 2020-02-11 14:00 | NUR ---
intubated; remains unresponsive; st on monitor; arias/rectal tube to gravity; iv intact; levophed at 14mcg/min; extremities elevated; call light within reach; will continue to monitor
--- NOTE | 2020-02-11 15:11 | NUR ---
PT IS BEING DISCHARGED FROM SKILLED PT. PT IS NO LONGER CLINICALLY APPROPRIATE.
--- NOTE | 2020-02-11 16:00 | NUR ---
intubated/ no sedation; unresponsive to verbal and tactile stimuli; iv intact; levophed gtt at 14 mcg/min; arias to gravity; rectal tube intact; sr-st on monitor; will continue to monitor
--- NOTE | 2020-02-11 17:57 | NUR ---
complete bed bath; leakage of stool around rectum tube; complete linen change; arias to gravity; white vaginal discharge noted; iv intact; no redness or edema noted at site; og tube intact; 80cc residual noted; connected to suction at this time; vent intact and maintained; repositioned; oral care and suctioning; scds intact; air mattress intact
--- NOTE | 2020-02-11 18:07 | NUR ---
RT ARCHER NOTIFIED OF O2 SAT OF 88%
--- NOTE | 2020-02-11 18:12 | NUR ---
RT at bed; peep increased to 15 per RT; o2 sat 96%
--- NOTE | 2020-02-11 19:30 | NUR ---
vent cont unassisted by pt. no response to painful stimuli. no gag reflex. master tax advisor shows sinus tach 1st degree avb hr 106. rt groin tlc in place. d51/2ns infusing @ 10cchr, levo infusing @ 14mcg/kg/min, d5w with bicarb infusing @ 75cchr. og in place to lis draining dark brown. arias cath in place. urine cloudy yellow. dignishield in place draining dk brown/black. bilat scds & fall precautions conts. turned & repositioned. requires total care for all needs.
[2020-02-11 21:01] LABS: URINE BLOOD DIPSTICK LARGE (NEGATIVE); URINE COLOR YELLOW; URINE GLUCOSE - DIPSTICK NEGATIVE (NEGATIVE); URINE KETONE NEGATIVE (NEGATIVE); URINE LEUK ESTERASE MODERATE (Negative); URINE NITRITE - DIPSTICK NEGATIVE (Negative); URINE PH 5.5 (4.5-8.0); URINE PROTEIN - DIPSTICK 30 mg/dL (NEG-TRACE); URINE UROBILINOGEN - DIPSTICK 0.2 E.U./dL (0.2)
[2020-02-11 21:05] LABS: URINE BACTERIA FEW hpf; URINE BILIRUBIN - DIPSTICK SMALL (NEGATIVE); URINE CLARITY CLOUDY; URINE EPITHELIAL CELLS MANY EPI/hpf (0-FEW); URINE RBC 25-50 RBC/hpf (0-5)
[2020-02-11 21:11] LABS: CREATININE 2.1 mg/dL (0.5-1.0); POTASSIUM 4.3 mmol/l (3.5-5.1)
[2020-02-11 21:13] LABS: ALBUMIN 1.9 g/dL (3.2-5.0)
--- NOTE | 2020-02-11 21:15 | NUR ---
urine spec collected & sent to lab.
[2020-02-12] VITALS (27 sets, daily range): BP systolic 100–165; BP diastolic 51–83
--- NOTE | 2020-02-12 00:01 | NUR ---
vent cont unassisted by pt. echocardiography technologist shows sinus tach 1st degree avb hr 100.
--- NOTE | 2020-02-12 00:28 | NUR ---
front office spec shows a fib hr 89.
--- NOTE | 2020-02-12 02:00 | NUR ---
vent cont unassisted by pt. dealer card room shows a fib hr 76.
--- NOTE | 2020-02-12 03:44 | NUR ---
miniature set constructor shows sinus tach hr 115.
--- NOTE | 2020-02-12 05:00 | NUR ---
xray here. pcxr obtained.
--- NOTE | 2020-02-12 05:30 | NUR ---
am care given. red rash between legs & under bilat breasts. dignishield out. no air in balloon. diaper applied.
--- NOTE | 2020-02-12 07:10 | NUR ---
pt remains intubated; no apparent distress noted; assessment completed at this time; pt unresponsive to verbal and tactile stimuli; pt does have involuntary movements throughout the body; pupils reactive; resp even and unlabored; lungs coarse/ diminished bases; skin color pale; vent intact and maintained with settings og AC mode, rate 28, TV 400, 100% FiO2, peep 15.0; 7.5 FR ETT secured at the 23cm lip line; oral suctioned for scant frothy white sputum; no gag reflex noted; hr reg; strong pulses; generalized edema noted; sr on monitor; abd soft with bs present; og intact and placement verified via air insertion/ ascult; adult brief cdi; arias to gravity draining sediment/ cloudy urine; cath strap intact; TLC patent to right groin with ivf/ levophed gtt at 14 mcg/min; titrated to 12 mcg/min; generalized rash noted under breast, lat and post torso and vaginal area; repositioned; extremities elevated; will continue to monitor
--- NOTE | 2020-02-12 08:08 | NUR ---
intubated; unresponsive; iv intact and patent; levophed at 12mcg/min; sr on monitor; arias to gravity; will continue to monitor
--- NOTE | 2020-02-12 10:00 | NUR ---
remains intubated; no apparent distress noted; continues not to respond to verbal stimuli; sr on monitor; arias to gravity; iv intact and patent; levophed per protocol; repositioned; will continue to monitor
--- NOTE | 2020-02-12 12:05 | NUR ---
intubated and unresponsive; no apparent distress noted; pericare per staff; increase redness noted to coccyx; skin intact to coccyx at this time; rash noted to perineal/ vaginal area; rectal tube placed; cath care administered; levophed gtt titrated down; arias to gravity; oral care with toothette; repositioned to left side; extremities elevated with pillows; sr on monitor; iv tubing changed; will continue to monitor
--- NOTE | 2020-02-12 13:53 | NUR ---
daughter Debi called this typewriters functional tester; family (4) plan to visit approx 1 hour; will continue to monitor
--- NOTE | 2020-02-12 14:07 | NUR ---
intubated; repositioned; oral care; iv intact; levophed gtt continued; sr on monitor; arias to gravity; will continue to monitor
--- NOTE | 2020-02-12 15:20 | NUR ---
staff at bedside to reposition pt and perform oral care; pt noted with eyes partially open; pt unable to track this service writer or follow commands; family x4 present; updated on condition; explained to family about eyes opening; improvement expressed per family; family wishes to speak amongst selves; will continue to monitor
--- NOTE | 2020-02-12 15:36 | NUR ---
family x4 at bedside
--- NOTE | 2020-02-12 16:06 | NUR ---
family x4 at bedside; sr on monitor; will continue to monitor
--- NOTE | 2020-02-12 16:49 | NUR ---
family at bedside; feature writer at bedside to assist with questions from family; family admits that pt has been opening her eyes when spoken to; eyes noted open while feature writer in room; family states pt has been moving head from side to side; ice and drinks provided per this feature writer; will continue to monitor
--- NOTE | 2020-02-12 16:55 | NUR ---
Dr Orozco called per senior writer; updated on family concerns; will continue to monitor
--- NOTE | 2020-02-12 17:30 | NUR ---
pt repositioned; sr on monitor; arias to gravity; iv intact and patent; will continue to monitor
--- NOTE | 2020-02-12 17:51 | NUR ---
family at bedside; declined to speak with RT; will continue to monitor
--- NOTE | 2020-02-12 17:54 | NUR ---
o2 sat 70%; RT Alexandro notified
--- NOTE | 2020-02-12 17:55 | NUR ---
selling underwriter called to room per family; family very emotional; family states "we think it's time"; family expresses wishes to remove breathing tube/ extubate; family request for pt to be medicated prior to; options in regards to extubation explained; family wishes for tube to be removed; RT Mc at bedside as witness; Dr Orozco to be notified;
--- NOTE | 2020-02-12 18:05 | NUR ---
Dr Orozco called per financial writer; Dr Orozco informed of pt wishes to withdraw life support; family wishes for pt to medicated and then extubated; DNR order on chart; order receoved for morphine; order receivde to extubate withnessed per Storm Jacobs RN SUP;
--- NOTE | 2020-02-12 18:37 | NUR ---
family x4 present at bedside; pre-medicated with morphine; pt extubated at this time; family immed at bedside; satff global technical writer and RT remains at bedside per request; will continue to monitor
--- NOTE | 2020-02-12 18:54 | NUR ---
family at bedside; cardiopulmonary arrest; apical checked per 2 staff;
--- NOTE | 2020-02-12 19:06 | NUR ---
[facility] called per Storm Jacobs RN; info provided; case # [id number]; awaiting call from [facility];
--- NOTE | 2020-02-12 19:14 | NUR ---
Dr Orozco notified time of [id number]
--- NOTE | 2020-02-12 21:21 | NUR ---
[facility] called per lc murphy rn.
--- NOTE | 2020-02-12 21:36 | NUR ---
danie from [facility] called. body released.
--- NOTE | 2020-02-12 22:24 | NUR ---
[facility] here. body released.
== END 2020-02-12 18:54 | disposition expired | DRG 207 ==
LOC: ED 18:59 → ED-I 23:30 → ED 01-22 01:06 → ICU 01-22 01:07 → MS2 01-22 01:07 → ICU 01-25 04:57
PROVIDERS: Emergency Medicine; Internal Medicine; Internal Medicine Nephrology; Nurse Practitioner Family; ADMIT Internal Medicine; ATTEND Internal Medicine
PROC: XW033E5 Introduction of Remdesivir Anti-infective into Peripheral Vein, Percutaneous Approach, New Technology Group 5 (ICD-10-PCS; 2020-01-25)
PROC: 5A09457 Assistance with Respiratory Ventilation, 24-96 Consecutive Hours, Continuous Positive Airway Pressure (ICD-10-PCS; 2020-01-25)
PROC: 0BH17EZ Insertion of Endotracheal Airway into Trachea, Via Natural or Artificial Opening (ICD-10-PCS; 2020-01-26)
PROC: 06HY33Z Insertion of Infusion Device into Lower Vein, Percutaneous Approach (ICD-10-PCS; 2020-01-26)
PROC: 0T9B70Z Drainage of Bladder with Drainage Device, Via Natural or Artificial Opening (ICD-10-PCS; 2020-01-26)
PROC: 5A1955Z Respiratory Ventilation, Greater than 96 Consecutive Hours (ICD-10-PCS; principal; 2020-01-27)
PROC: 30243N1 Transfusion of Nonautologous Red Blood Cells into Central Vein, Percutaneous Approach (ICD-10-PCS; 2020-02-03)
DX: U07.1 COVID-19 (principal); J12.89 Other viral pneumonia; J96.01 Acute respiratory failure with hypoxia; K92.2 Gastrointestinal hemorrhage, unspecified; N17.9 Acute kidney failure, unspecified; E87.0 Hyperosmolality and hypernatremia; E87.4 Mixed disorder of acid-base balance; E86.9 Volume depletion, unspecified; I95.9 Hypotension, unspecified; D64.9 Anemia, unspecified; R60.9 Edema, unspecified; Z66 Do not resuscitate; I10 Essential (primary) hypertension; J45.909 Unspecified asthma, uncomplicated; G47.33 Obstructive sleep apnea (adult) (pediatric); K21.9 Gastro-esophageal reflux disease without esophagitis; Z79.899 Other long term (current) drug therapy; Z79.01 Long term (current) use of anticoagulants; Z88.1 Allergy status to other antibiotic agents; Z86.711 Personal history of pulmonary embolism
CPT/HCPCS: J1100; J1650; J2997; P9016; S0164